=== PATIENT | female | born 1945 | race Caucasian/White ===

== ENCOUNTER → 2017-09-22 08:45 | Outpatient (CLI) | payer MEDICARE, OTHER, SELFPAY ==
[2017-09-22 09:24] LABS: Add Manual Diff / Slide Review NO; Basophils Percent Auto 0.7 % (0-2); Eosinophils Percent Auto 3.7 % (2-4); Hematocrit 41.7 % (36-46); Hemoglobin 14.2 g/dL (12.0-16.0); Lymphocytes Percent Auto 28.9 % (25-40); Mean Corpuscular HGB Conc 33.9 % (30-36); Mean Corpuscular Hemoglobin 33.1 PG (26-34); Mean Corpuscular Volume 97.6 fL (80-100); Monocytes Percent Auto 13.2 % (3-14); Neutrophils Absolute Auto 1600 /uL (3000-5900); Neutrophils Percent Auto 53.5 % (50-75); Platelet Count 175 X10^3/uL (150-400); Red Blood Cell Count 4.27 X10^6/uL (4.0-5.2)
[2017-09-22 09:47] LABS: Alanine Aminotransferase 44 IU/L (9-52); Albumin 4.1 g/dL (3.5-5.0); Albumin Globulin Ratio 1.5 (1.0-2.8); Alkaline Phosphatase 52 U/L (38-126); Aspartate Aminotransferase 42 IU/L (14-36); BUN Creatinine Ratio 17.1 (6-22); Bilirubin Total 0.7 mg/dL (0.2-1.3); Blood Urea Nitrogen 12 mg/dL (7-17); Calcium 9.5 mg/dL (8.4-10.2); Carbon Dioxide 26 mmol/L (22-32); Chloride 107 mmol/L (98-107); Cholesterol 145 mg/dL (140-199); Estimated Glomerular Filt Rate > 60.0 mL/min (>60); Globulin 2.8 g/dL (1.7-4.1); Glucose 116 mg/dL (80-110); HDL Cholesterol 45 mg/dL (40-60); HEMOLYSIS 19 (0-50); LDL Cholesterol Calculated 82 mg/dL (<100); Sodium 144 mmol/L (137-145); Total Protein 6.9 g/dL (6.3-8.2); Triglycerides 88 mg/dL (35-150)
== END ==
PROVIDERS: Family Provider Family Medicine; PCP Family Medicine; Visit Provider Internal Medicine Cardiovascular Disease
DX: I48.92 Unspecified atrial flutter (principal); I47.1 Supraventricular tachycardia; I47.2 Ventricular tachycardia; Z79.01 Long term (current) use of anticoagulants; E78.5 Hyperlipidemia, unspecified; D05.10 Intraductal carcinoma in situ of unspecified breast; E03.9 Hypothyroidism, unspecified
CPT/HCPCS: 36415; 80053; 80061; 84443; 85025

== ENCOUNTER → 2017-10-16 14:00 | Oncology outpatient (ONC) | payer MEDICARE, OTHER, SELFPAY ==
--- NOTE | 2017-10-16 08:16 | ONC.APRN.PN ---
Assessment and Plan (1) Breast cancer Current visit: Yes Status: Acute 10/16/17 15:37 The patient is a 72 year old Female who is being seen in the clinic 10/16/2017. She carries a diagnosis of bilateral stage I, ER-positive low-grade breast cancer in clinical remission since 2013 and respectively. The patient was taking AI anastrozole 05/2014-08/2016 however she elected to discontinue due to memory issues. She has since undergone bilateral mastectomy. On exam today no clinical signs or symptoms of disease recurrence. CBC, CMP unremarkable. Return to clinic in 1 year for provider visit. No labs indicated. Patient agrees with this plan of care. - Time Spent with Patient 25 mins PN -Subjective Interval history: The patient is a 72 year old Female who is being seen in the clinic 10/16/2017. She carries a diagnosis of bilateral stage I, ER-positive low-grade breast cancer in clinical remission since 2013 and respectively. The patient was taking AI anastrozole 05/2014-08/2016 however she elected to discontinue due to memory issues. She presents today with no new concerns on exam whatsoever. Overall feeling quite well, spending a lot of time working in her garden. She has not had any recent illnesses or infections. No headaches. No new pain, no new lumps or bumps. No nausea, abdominal pain. No change with bladder or bowel habits. Past Medical History The patient's past medical history is significant for: 1) Right-sided breast cancer: Stage I (pT1c, pN0). Diagnosis: 03/07/2014. Ultrasound-guided core needle biopsy. Pathology confirming invasive lobular carcinoma grade 1-2. ER and TX positive. HER-2 equivocal by IHC FISH negative. 04/16/2014. Right-sided mastectomy. Pathology confirming invasive lobular carcinoma. [place] grade 2. Single mass measuring 12 mm. ER/TX positive, Rosa Elena score equal to 8 of 8, and 8 of 8 respectively. HER-2 equivocal by IHC but negative by FISH. Ki-67 equal to 10%. 4 sentinel lymph nodes identified all negative for carcinoma. Posterior margin with no tumor on ink. The closest at 2 mm Prognosis: 05/14/2014. Oncotype DX. Recurrence score equal to 19. 10 year risk of distant recurrence at 12% after 5 years tamoxifen. Treatment: 06/06/2014-August 2016. Anastrozole. Discontinued secondary to increased memory loss. Cardiac monitorin10/28/2015.. Echocardiogram. EF 60-65%. 2) Left-sided breast cancer. Stage I (pT1c, PN 0) Diagnosis: 03/25/2014. Ultrasound-guided biopsy. Pathology confirming invasive ductal carcinoma [place] grade 1. ER and TX positive (95% and 60% respectively). HER-2 negative on IHC. Ki-67 less than 5%. 04/16/2014. Left-sided mastectomy. Pathology confirming an invasive ductal carcinoma with a solitary mass measuring 12 mm. [place] grade 2. ER/TX positive. HER-2 by IHC negative. Ki-67 5%. 3 sentinel lymph nodes identified all negative for disease. Prognosis: Oncotype DX as above. Treatment: 06/06/2014-August 2016. Anastrozole. Discontinued secondary to increased memory loss. Cardiac monitorin10/28/2015.. Echocardiogram. EF 60-65%. 3) Diffuse large B-cell lymphoma. Diagnosis: 2002. Treatment R CHOP, RICE, high-dose radiolabeled antibody followed by autologous transplant. Patient remains in clinical remission. Followed by Dr. Sal Pinedo at the [facility] last seen on 07/31/2013. 4) hypothyroidism. 5) depression. 6) intermittent GERD. 7) osteopenia. DEXA scans: 03/29/2016. T score of the AP spine, left and right neck of the femur: 1.0, -1.3, and -1.2, respectively. 09/18/2013. T score of the AP spine, left and right neck of the femur: 1.3, -1.6, and -1.3, respectively. Patient on calcium supplements. 8) Atrial Flutter. Presented in 2016. Status cardioversion. Senior Manager Mmcoe is Dr. Coy. Patient medically managed with eliquist and metoprolol. Breast Resection Staging BC Primary Tumor T1- Tumor <= 20mm BC Regional Nodes N0-no regional metastasis BC Metastasis M0-No evidence metastasis BC Resection Histology Grade II Results - Imaging Additional studies: Procedures Bunionectomy with soft tissue correction and osteotomy of the first metatarsal (05/16/11) Closed [endoscopic] biopsy of large intestine (08/05/11) Other bunionectomy (05/16/11) Other division of bone, tarsals and metatarsals (05/16/11) [Endoscopic] polypectomy of rectum (08/05/11) Home Medications and Allergies Home Medications Medication Instructions Recorded Confirmed Type CALCIUM CARBONATE/VITAMIN D3 1 tab PO #0 06/25/12 09/28/17 History (Super Calcium 600 + D3 Tablet) FOLIC ACID/VIT A/VIT B1/VIT 1 tab PO #0 06/25/12 09/28/17 History (#MULTIVITAMIN) [ALLER-LIBORIO] 10 mg PO QDAY #0 06/25/12 09/28/17 History apixaban [Eliquis] 5 mg BID #0 03/18/16 09/28/17 History cholecalciferol (vitamin D3) 1,000 1,000 unit PO DAILY 09/28/17 09/28/17 History unit capsule duloxetine 30 mg capsule,delayed 30 mg PO BID #180 cap 09/28/17 Rx release levothyroxine 75 mcg tablet 75 mcg PO QAM #90 tab 09/28/17 Rx metoprolol tartrate 25 mg tablet 25 mg PO BID #180 tab 09/28/17 Rx trazodone 50 mg tablet 75 mg PO HS #135 tab 09/28/17 Rx rosuvastatin 5 mg PO HS 10/16/17 History Allergies Allergy/AdvReac Type Severity Reaction Status Date / Time amoxicillin [From AUGMENTIN] Allergy Mild diarrhea Unverified 09/28/17 08:56 clavulanic acid Allergy Mild diarrhea Unverified 09/28/17 08:56 [From AUGMENTIN] codeine [CODEINE] Allergy Mild weakness Unverified 09/28/17 08:56 Sgzzdrb-Ufd-Dqc Reductase Allergy Mild Unverified 09/28/17 08:56 Inhibitor [IDORBGR-GKO-WHM REDUCTASE INHIBITOR] Sulfa (Sulfonamide Allergy Mild rash Unverified 09/28/17 08:56 Antibiotics) [SULFA (SULFONAMIDE ANTIBIOTICS)] IV CONTRAST Allergy Unknown Uncoded 09/28/17 08:56 Exam - Constitutional positive no acute distress, positive average body habitus - Routine HEENT Exam Eye: Present: conjunctivae pink. Absent: conjunctival icterus, scleral injection ENT: Present: mucous membranes moist, oropharynx clear - Routine Neck Exam Present: supple. Absent: lymphadenopathy - Routine Chest/Breast/Axilla Exam Chest wall exam standard: Absent: tenderness, mass Axillae: Absent: lymphadenopathy, mass, tenderness - Routine Respiratory Exam Present: Clear to auscultation bilaterally - Routine Cardiovascular Exam Present: RRR, S1, S2. Absent: JVD - Routine Abdominal Exam Present: soft, normoactive bowel sounds. Absent: tenderness, distended, organomegaly, mass - Routine Extremities Exam Absent: edema, calf tenderness - Routine Skin Exam Present: intact, normal turgor. Absent: petechiae - Routine Neurological Exam Present: alert, oriented X3 - Routine Psychiatric Exam Present: normal affect
--- NOTE | 2017-10-16 08:20 | P.PNONC_ITS ---
Assessment and Plan (1) Breast cancer Current visit: Yes Status: Acute 10/16/17 15:37 The patient is a 72 year old Female who is being seen in the clinic 10/16/2017. She carries a diagnosis of bilateral stage I, ER-positive low-grade breast cancer in clinical remission since 2013 and respectively. The patient was taking AI anastrozole 05/2014-08/2016 however she elected to discontinue due to memory issues. She has since undergone bilateral mastectomy. On exam today no clinical signs or symptoms of disease recurrence. CBC, CMP unremarkable. Return to clinic in 1 year for provider visit. No labs indicated. Patient agrees with this plan of care. - Time Spent with Patient 25 mins PN -Subjective Interval history: The patient is a 72 year old Female who is being seen in the clinic 10/16/2017. She carries a diagnosis of bilateral stage I, ER-positive low-grade breast cancer in clinical remission since 2013 and respectively. The patient was taking AI anastrozole 05/2014-08/2016 however she elected to discontinue due to memory issues. She presents today with no new concerns on exam whatsoever. Overall feeling quite well, spending a lot of time working in her garden. She has not had any recent illnesses or infections. No headaches. No new pain, no new lumps or bumps. No nausea, abdominal pain. No change with bladder or bowel habits. Past Medical History The patient's past medical history is significant for: 1) Right-sided breast cancer: Stage I (pT1c, pN0). Diagnosis: 03/07/2014. Ultrasound-guided core needle biopsy. Pathology confirming invasive lobular carcinoma grade 1-2. ER and NM positive. HER-2 equivocal by IHC FISH negative. 04/16/2014. Right-sided mastectomy. Pathology confirming invasive lobular carcinoma. [place] grade 2. Single mass measuring 12 mm. ER/NM positive, Rosa Elena score equal to 8 of 8, and 8 of 8 respectively. HER-2 equivocal by IHC but negative by FISH. Ki-67 equal to 10%. 4 sentinel lymph nodes identified all negative for carcinoma. Posterior margin with no tumor on ink. The closest at 2 mm Prognosis: 05/14/2014. Oncotype DX. Recurrence score equal to 19. 10 year risk of distant recurrence at 12% after 5 years tamoxifen. Treatment: 06/06/2014-August 2016. Anastrozole. Discontinued secondary to increased memory loss. Cardiac monitorin10/28/2015.. Echocardiogram. EF 60-65%. 2) Left-sided breast cancer. Stage I (pT1c, PN 0) Diagnosis: 03/25/2014. Ultrasound-guided biopsy. Pathology confirming invasive ductal carcinoma [place] grade 1. ER and NM positive (95% and 60% respectively). HER-2 negative on IHC. Ki-67 less than 5%. 04/16/2014. Left-sided mastectomy. Pathology confirming an invasive ductal carcinoma with a solitary mass measuring 12 mm. [place] grade 2. ER/NM positive. HER-2 by IHC negative. Ki-67 5%. 3 sentinel lymph nodes identified all negative for disease. Prognosis: Oncotype DX as above. Treatment: 06/06/2014-August 2016. Anastrozole. Discontinued secondary to increased memory loss. Cardiac monitorin10/28/2015.. Echocardiogram. EF 60-65%. 3) Diffuse large B-cell lymphoma. Diagnosis: 2002. Treatment R CHOP, RICE, high-dose radiolabeled antibody followed by autologous transplant. Patient remains in clinical remission. Followed by Dr. Sal Pinedo at the [facility] last seen on 07/31/2013. 4) hypothyroidism. 5) depression. 6) intermittent GERD. 7) osteopenia. DEXA scans: 03/29/2016. T score of the AP spine, left and right neck of the femur: 1.0, - 1.3, and -1.2, respectively. 09/18/2013. T score of the AP spine, left and right neck of the femur: 1.3, - 1.6, and -1.3, respectively. Patient on calcium supplements. 8) Atrial Flutter. Presented in 2016. Status cardioversion. Sports Journalist is Dr. Coy. Patient medically managed with eliquist and metoprolol. Breast Resection Staging BC Primary Tumor T1- Tumor <= 20mm BC Regional Nodes N0-no regional metastasis BC Metastasis M0-No evidence metastasis BC Resection Histology Grade II Results - Imaging Additional studies: Procedures Bunionectomy with soft tissue correction and osteotomy of the first metatarsal ( 05/16/11) Closed [endoscopic] biopsy of large intestine (08/05/11) Other bunionectomy (05/16/11) Other division of bone, tarsals and metatarsals (05/16/11) [Endoscopic] polypectomy of rectum (08/05/11) Home Medications and Allergies Home Medications Medication Instructions Recorded Confirmed Type CALCIUM CARBONATE/VITAMIN D3 1 tab PO #0 06/25/12 09/28/17 History (Super Calcium 600 + D3 Tablet) FOLIC ACID/VIT A/VIT B1/VIT 1 tab PO #0 06/25/12 09/28/17 History (#MULTIVITAMIN) [ALLER-LIBORIO] 10 mg PO QDAY #0 06/25/12 09/28/17 History apixaban [Eliquis] 5 mg BID #0 03/18/16 09/28/17 History cholecalciferol (vitamin D3) 1,000 1,000 unit PO DAILY 09/28/17 09/28/17 History unit capsule duloxetine 30 mg capsule,delayed 30 mg PO BID #180 cap 09/28/17 Rx release levothyroxine 75 mcg tablet 75 mcg PO QAM #90 tab 09/28/17 Rx metoprolol tartrate 25 mg tablet 25 mg PO BID #180 tab 09/28/17 Rx trazodone 50 mg tablet 75 mg PO HS #135 tab 09/28/17 Rx rosuvastatin 5 mg PO HS 10/16/17 History Allergies Allergy/AdvReac Type Severity Reaction Status Date / Time amoxicillin [From AUGMENTIN] Allergy Mild diarrhea Unverified 09/28/17 08:56 clavulanic acid Allergy Mild diarrhea Unverified 09/28/17 08:56 [From AUGMENTIN] codeine [CODEINE] Allergy Mild weakness Unverified 09/28/17 08:56 Tnmoygx-Fni-Awt Reductase Allergy Mild Unverified 09/28/17 08:56 Inhibitor [MKALPKN-OTH-LRU REDUCTASE INHIBITOR] Sulfa (Sulfonamide Allergy Mild rash Unverified 09/28/17 08:56 Antibiotics) [SULFA (SULFONAMIDE ANTIBIOTICS)] IV CONTRAST Allergy Unknown Uncoded 09/28/17 08:56 Exam - Constitutional positive no acute distress, positive average body habitus - Routine HEENT Exam Eye: Present: conjunctivae pink. Absent: conjunctival icterus, scleral injection ENT: Present: mucous membranes moist, oropharynx clear - Routine Neck Exam Present: supple. Absent: lymphadenopathy - Routine Chest/Breast/Axilla Exam Chest wall exam standard: Absent: tenderness, mass Axillae: Absent: lymphadenopathy, mass, tenderness - Routine Respiratory Exam Present: Clear to auscultation bilaterally - Routine Cardiovascular Exam Present: RRR, S1, S2. Absent: JVD - Routine Abdominal Exam Present: soft, normoactive bowel sounds. Absent: tenderness, distended, organomegaly, mass - Routine Extremities Exam Absent: edema, calf tenderness - Routine Skin Exam Present: intact, normal turgor. Absent: petechiae - Routine Neurological Exam Present: alert, oriented X3 - Routine Psychiatric Exam Present: normal affect
[2017-10-16 14:24] VITALS: BP 130/73; PULSE 78; RESP 18; TEMP 36.4; O2SAT 97
--- NOTE | 2019-01-17 14:37 | ONC.MSW ---
Description: Mastectomy wear/prescriptions Activity: Faxed in prescriptions for mastectomy bras and stephanie's, per pt's request.
== END ==
PROVIDERS: Family Provider Family Medicine; PCP Family Medicine; Visit Provider Nurse Practitioner Gerontology
DX: Z08 Encounter for follow-up examination after completed treatment for malignant neoplasm (principal); Z85.3 Personal history of malignant neoplasm of breast; Z85.72 Personal history of non-Hodgkin lymphomas
CPT/HCPCS: 99214

== ENCOUNTER → 2017-10-30 10:39 | Outpatient (CLI) | payer MEDICARE, OTHER, SELFPAY ==
[2017-10-30 12:44] LABS: Hemoglobin A1C% w Est Avg Glu 5.8 % (4.0-6.0)
== END ==
PROVIDERS: Family Provider Family Medicine; PCP Family Medicine; Visit Provider Family Medicine
DX: R73.01 Impaired fasting glucose (principal)
CPT/HCPCS: 36415; 83036

== ENCOUNTER → 2018-09-11 18:39 | Outpatient (CLI) | payer MEDICARE, OTHER, SELFPAY | PROVIDERS: Visit Provider Physician Assistant | DX: N39.0 Urinary tract infection, site not specified (principal); R31.9 Hematuria, unspecified | CPT/HCPCS: 87077; 87086; 87186 ==

== ENCOUNTER → 2018-10-05 13:25 | Outpatient (CLI) | payer MEDICARE, OTHER, SELFPAY | PROVIDERS: PCP Student in an Organized Health Care Education/Training Program; Visit Provider Student in an Organized Health Care Education/Training Program | DX: M85.852 Other specified disorders of bone density and structure, left thigh (principal); Z78.0 Asymptomatic menopausal state | CPT/HCPCS: 77080 ==

== ENCOUNTER → 2018-10-24 08:31 | Outpatient (CLI) | payer MEDICARE, OTHER, SELFPAY ==
[2018-10-24 08:59] LABS: Add Manual Diff / Slide Review NO; Basophils Absolute Auto 0 /uL (0-100); Eosinophils Absolute Auto 100 /uL (0-450); Eosinophils Percent Auto 2.8 % (2-4); Hematocrit 42.2 % (36-46); Hemoglobin 14.3 g/dL (12.0-16.0); Lymphocytes Absolute Auto 700 /uL (1100-4500); Lymphocytes Percent Auto 19.2 % (25-40); Mean Corpuscular HGB Conc 33.8 % (30-36); Mean Corpuscular Hemoglobin 32.7 PG (26-34); Mean Corpuscular Volume 96.8 fL (80-100); Monocytes Absolute Auto 400 /uL (0-900); Monocytes Percent Auto 11.5 % (3-14); Neutrophils Absolute Auto 2200 /uL (1500-7000); Neutrophils Percent Auto 65.5 % (50-75); Platelet Count 177 X10^3/uL (150-400); Red Blood Cell Count 4.36 X10^6/uL (4.0-5.2); Red Cell Distribution Width 13.2 % (11.6-14.8); White Blood Cell Count 3.4 X10^3/uL (4.5-11.0)
[2018-10-24 09:50] LABS: Cholesterol 188 mg/dL (140-199); HDL Cholesterol 52 mg/dL (40-60); LDL Cholesterol Calculated 113 mg/dL (<100); Triglycerides 117 mg/dL (35-150)
[2018-10-24 09:52] LABS: BUN Creatinine Ratio 24.3 (6-22); Blood Urea Nitrogen 17 mg/dL (7-17); Calcium 9.8 mg/dL (8.4-10.2); Carbon Dioxide 27 mmol/L (22-32); Chloride 106 mmol/L (98-107); Estimated Glomerular Filt Rate > 60.0 mL/min (>60); Glucose 105 mg/dL (80-110); HEMOLYSIS 28 (0-50); Potassium 4.4 mmol/L (3.4-5.1); Sodium 142 mmol/L (137-145)
== END ==
PROVIDERS: Family Provider Student in an Organized Health Care Education/Training Program; PCP Student in an Organized Health Care Education/Training Program; Visit Provider Internal Medicine Cardiovascular Disease
DX: E78.5 Hyperlipidemia, unspecified (principal); I48.92 Unspecified atrial flutter; I10 Essential (primary) hypertension; Z79.01 Long term (current) use of anticoagulants
CPT/HCPCS: 36415; 80048; 80061; 85025

== ENCOUNTER → 2019-10-28 07:29 | Outpatient (CLI) | payer MEDICARE, OTHER, SELFPAY ==
[2019-10-28 08:19] LABS: Add Manual Diff / Slide Review NO; Basophils Absolute Auto 0 /uL (0-100); Basophils Percent Auto 1.2 % (0-2); Eosinophils Absolute Auto 100 /uL (0-450); Eosinophils Percent Auto 3.3 % (2-4); Hematocrit 42.8 % (36-46); Hemoglobin 14.5 g/dL (12.0-16.0); Lymphocytes Absolute Auto 900 /uL (1100-4500); Lymphocytes Percent Auto 23.6 % (25-40); Mean Corpuscular HGB Conc 33.8 % (30-36); Mean Corpuscular Hemoglobin 33.5 PG (26-34); Mean Corpuscular Volume 99.2 fL (80-100); Monocytes Absolute Auto 400 /uL (0-900); Monocytes Percent Auto 11.1 % (3-14); Neutrophils Absolute Auto 2300 /uL (1500-7000); Neutrophils Percent Auto 60.8 % (50-75); Platelet Count 174 X10^3/uL (150-400); Red Blood Cell Count 4.32 X10^6/uL (4.0-5.2); Red Cell Distribution Width 13.4 % (11.6-14.8); White Blood Cell Count 3.8 X10^3/uL (4.5-11.0)
[2019-10-28 08:35] LABS: BUN Creatinine Ratio 17.6 (6-22); Blood Urea Nitrogen 13 mg/dL (7-17); Calcium 9.9 mg/dL (8.4-10.2); Carbon Dioxide 27 mmol/L (22-32); Chloride 105 mmol/L (98-107); Cholesterol 178 mg/dL (140-199); Estimated Glomerular Filt Rate > 60.0 mL/min (>60); Glucose 112 mg/dL (80-110); HDL Cholesterol 57 mg/dL (40-60); HEMOLYSIS < 15 (0-50); LDL Cholesterol Calculated 95 mg/dL (<100); Potassium 4.2 mmol/L (3.4-5.1); Sodium 139 mmol/L (137-145); Triglycerides 132 mg/dL (35-150)
== END ==
PROVIDERS: Family Provider Student in an Organized Health Care Education/Training Program; PCP Student in an Organized Health Care Education/Training Program; Referring Provider Internal Medicine Cardiovascular Disease; Visit Provider Internal Medicine Cardiovascular Disease
DX: E78.5 Hyperlipidemia, unspecified (principal); Z79.01 Long term (current) use of anticoagulants; I47.1 Supraventricular tachycardia
CPT/HCPCS: 36415; 80048; 80061; 85025

== ENCOUNTER → 2020-10-29 07:37 | Outpatient (CLI) | payer MEDICARE, OTHER, SELFPAY ==
[2020-10-29 08:40] LABS: Add Manual Diff / Slide Review NO; Basophils Absolute Auto 0 /uL (0-100); Basophils Percent Auto 0.8 % (0-2); Eosinophils Absolute Auto 100 /uL (0-450); Eosinophils Percent Auto 4.2 % (2-4); Hematocrit 41.3 % (36-46); Lymphocytes Absolute Auto 1000 /uL (1100-4500); Lymphocytes Percent Auto 28.2 % (25-40); Mean Corpuscular HGB Conc 33.8 % (30-36); Mean Corpuscular Volume 97.7 fL (80-100); Monocytes Absolute Auto 400 /uL (0-900); Monocytes Percent Auto 13.2 % (3-14); Neutrophils Absolute Auto 1800 /uL (1500-7000); Neutrophils Percent Auto 53.6 % (50-75); Platelet Count 167 X10^3/uL (150-400); Red Blood Cell Count 4.23 X10^6/uL (4.0-5.2); Red Cell Distribution Width 12.7 % (11.6-14.8); White Blood Cell Count 3.4 X10^3/uL (4.5-11.0)
[2020-10-29 09:15] LABS: BUN Creatinine Ratio 19.5 (6-22); Blood Urea Nitrogen 17 mg/dL (7-17); Calcium 9.8 mg/dL (8.4-10.2); Carbon Dioxide 25 mmol/L (22-32); Chloride 108 mmol/L (98-107); Cholesterol 178 mg/dL (140-199); Estimated Glomerular Filt Rate > 60.0 mL/min (>60); Glucose 106 mg/dL (80-110); HDL Cholesterol 43 mg/dL (40-60); HEMOLYSIS < 15 (0-50); LDL Cholesterol Calculated 114 mg/dL (<100); Sodium 139 mmol/L (137-145); Triglycerides 106 mg/dL (35-150)
== END ==
PROVIDERS: Family Provider Student in an Organized Health Care Education/Training Program; PCP Student in an Organized Health Care Education/Training Program; Referring Provider Internal Medicine Cardiovascular Disease; Visit Provider Internal Medicine Cardiovascular Disease
DX: I47.2 Ventricular tachycardia (principal); E78.5 Hyperlipidemia, unspecified; Z79.01 Long term (current) use of anticoagulants
CPT/HCPCS: 36415; 80048; 80061; 85025

== ENCOUNTER → 2020-12-03 11:03 | Outpatient (CLI) | payer MEDICARE, OTHER, SELFPAY | PROVIDERS: Family Provider Student in an Organized Health Care Education/Training Program; PCP Student in an Organized Health Care Education/Training Program; Referring Provider Student in an Organized Health Care Education/Training Program; Visit Provider Student in an Organized Health Care Education/Training Program | DX: Z78.0 Asymptomatic menopausal state (principal); M85.852 Other specified disorders of bone density and structure, left thigh; M85.851 Other specified disorders of bone density and structure, right thigh | CPT/HCPCS: 77080 ==

== ENCOUNTER → 2021-11-18 08:25 | Outpatient (CLI) | payer MEDICARE, OTHER, SELFPAY ==
[2021-11-18 10:45] LABS: Add Manual Diff / Slide Review NO; Basophils Absolute Auto 0 /uL (0-100); Eosinophils Absolute Auto 100 /uL (0-450); Eosinophils Percent Auto 2.2 % (2-4); Hematocrit 41.9 % (36-46); Hemoglobin 14.2 g/dL (12.0-16.0); Lymphocytes Absolute Auto 800 /uL (1100-4500); Lymphocytes Percent Auto 25.8 % (25-40); Mean Corpuscular Hemoglobin 33.4 PG (26-34); Mean Corpuscular Volume 98.2 fL (80-100); Monocytes Absolute Auto 400 /uL (0-900); Monocytes Percent Auto 14.1 % (3-14); Neutrophils Absolute Auto 1700 /uL (1500-7000); Neutrophils Percent Auto 56.9 % (50-75); Platelet Count 174 X10^3/uL (150-400); Red Blood Cell Count 4.27 X10^6/uL (4.0-5.2); Red Cell Distribution Width 13.1 % (11.6-14.8)
[2021-11-18 11:23] LABS: BUN Creatinine Ratio 18.2 (6-22); Blood Urea Nitrogen 16 mg/dL (7-17); Calcium 9.3 mg/dL (8.4-10.2); Carbon Dioxide 25 mmol/L (22-32); Chloride 106 mmol/L (98-107); Cholesterol 168 mg/dL (140-199); Estimated Glomerular Filt Rate > 60 mL/min (>60); Glucose 103 mg/dL (80-110); HDL Cholesterol 49 mg/dL (40-60); HEMOLYSIS < 15 (0-50); LDL Cholesterol Calculated 104 mg/dL (<100); Sodium 141 mmol/L (137-145); Triglycerides 75 mg/dL (35-150)
== END ==
PROVIDERS: Family Provider Student in an Organized Health Care Education/Training Program; PCP Student in an Organized Health Care Education/Training Program; Referring Provider Internal Medicine Cardiovascular Disease; Visit Provider Internal Medicine Cardiovascular Disease
DX: E78.5 Hyperlipidemia, unspecified (principal); I48.92 Unspecified atrial flutter; Z79.01 Long term (current) use of anticoagulants
CPT/HCPCS: 36415; 80048; 80061; 85025

== ENCOUNTER → 2022-01-17 09:16 | Outpatient (CLI) | payer MEDICARE, OTHER, SELFPAY ==
[2022-01-17 12:27] LABS: COVID19 -Nasal RAPID Negative (Negative)
== END ==
PROVIDERS: Family Provider Student in an Organized Health Care Education/Training Program; PCP Student in an Organized Health Care Education/Training Program; Visit Provider Surgery
DX: Z20.822 Contact with and (suspected) exposure to COVID-19 (principal); Z01.812 Encounter for preprocedural laboratory examination
CPT/HCPCS: 87635; C9803

== ENCOUNTER 2022-01-18 06:35 | Day surgery (SDC) | payer MEDICARE, OTHER, SELFPAY ==
[2022-01-18] VITALS (7 sets, daily range): BP systolic 90–148; BP diastolic 55–83; PULSE 68–85; RESP 7–16; TEMP 35.7–36.8; O2SAT 90–98; BMI 29.7
--- NOTE | 2022-01-18 | PATH_ITS ---
[facility] Accession Number: [id number] . 01 Material submitted: . colon - DESCENDING COLON POLYP . 01 Diagnosis: Descending Colon Polyp, Biopsy: Hyperplastic polyp. MRV 01/24/2022 1542 Local . 01 Electronically signed: . Sophia Alves MD, Pathologist NPI- [id number] . 01 Gross description: . DESCENDING COLON POLYP: Received in formalin is 1 fragment(s) of hodges, soft tissue measuring 0.2 x 0.2 x 0.1 cm submitted entirely in 1 cassette(s) /CPE 01/20/2022 0716 Local . 01 Pathologist provided ICD-10: D12.4 . 01 CPT . 375035 Specimen Comment: A courtesy copy of this report has been sent to [facility] Pathology Performed at: 01 [facility] [address] [place] [id number] MD Moise Burns MD Phone: [phone]
[2022-01-18] MEDS: LACTATED RINGERS 1,000 ML 42 ML IV (07:26)
--- NOTE | 2022-01-18 08:01 | PM.HP.1 ---
History of Present Illness History of Present Illness Chief complaint: Colonoscopy Narrative: Doing well. No complaints. Feeling dehydrated, but otherwise fine. No blood or change in bowel movements. Father with history of colon cancer. History of polyps in the past. 5 year f/u recommended. No issues with c-scope in past. Sister with unspecified colitis and long history of colon problems. Eliquis held for last 2 days. 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 Urinary incontinence Surgical History Anesthesia complication History of spinal surgery (1981) History of stem cell transplant (2002) History of total mastectomy (04/16/14) Status post bunionectomy (2011) Status post tubal ligation (1977) Family & Social History Family History Father Cancer Osteoporosis Mother Generalized onset seizure disorder Hypertension Sister Age: 80 Hypertension High cholesterol Osteoporosis Grandfather Cancer Grandmother Pneumonia Grandfather Cancer Social History: household members none Tobacco & Substance use: Smoking Status Never smoker alcohol intake current alcohol intake frequency holiday/special occasion Substance Use Type does not use Meds Home Medications and Allergies Home Medications Medication Instructions Recorded Confirmed Type CALCIUM CARBONATE/VITAMIN D3 1 tab PO ##0 06/25/12 12/07/21 History (Super Calcium 600 + D3 Tablet) FOLIC ACID/VIT A/VIT B1/VIT 1 tab PO ##0 06/25/12 12/07/21 History (#MULTIVITAMIN) [ALLER-LIBORIO] 10 mg PO QDAY ##0 06/25/12 12/07/21 History apixaban 5 mg tablet (Eliquis) 5 mg BID ##0 03/18/16 01/18/22 History cholecalciferol (vitamin D3) 25 1,000 unit PO DAILY 09/28/17 12/07/21 History mcg (1,000 unit) capsule rosuvastatin 5 mg tablet 5 mg PO HS 10/16/17 01/18/22 History metoprolol tartrate 25 mg tablet 50 mg PO BID #180 tabs 11/19/20 01/18/22 Rx azelastine 137 mcg (0.1 %) nasal 1 spray intranasal BID #30 mL 12/24/20 12/07/21 Rx spray aerosol duloxetine 30 mg capsule,delayed 30 mg PO BID #180 caps 12/07/21 01/18/22 Rx release (Cymbalta) flecainide 100 mg tablet 100 mg PO Q12H PRN tachycardia 12/07/21 01/18/22 History ipratropium bromide 42 mcg (0.06 2 spray intranasal TID-QID PRN 12/07/21 01/18/22 Rx %) nasal spray allergy symptoms #15 mL levothyroxine 75 mcg tablet 75 mcg PO QAM #90 tabs 12/07/21 01/18/22 Rx (Synthroid) trazodone 50 mg tablet 75 mg PO HS #135 tabs 12/07/21 01/18/22 Rx Allergies Allergy/AdvReac Type Severity Reaction Status Date / Time amoxicillin [From AUGMENTIN] Allergy Mild diarrhea Verified 01/18/22 07:21 clavulanic acid Allergy Mild diarrhea Verified 01/18/22 07:21 [From AUGMENTIN] codeine [CODEINE] Allergy Mild weakness Verified 01/18/22 07:21 Pqqbsti-RUB-JfM Reductase Allergy Mild Verified 01/18/22 07:21 Inhibitor [KYMTTKY-ASW-AEN REDUCTASE INHIBITOR] Sulfa (Sulfonamide Allergy Mild rash Verified 01/18/22 07:21 Antibiotics) [SULFA (SULFONAMIDE ANTIBIOTICS)] IV CONTRAST Allergy Unknown Uncoded 01/18/22 07:21 Exam Vital Signs (past 8 hours): - 01/18/22 06:58 Temperature 97.2 F L Pulse Rate 85 Respiratory Rate 16 Blood Pressure 148/83 H Pulse Oximetry 95 Oxygen Delivery Method Room Air Oxygen Delivery Method Room Air Const General: cooperative, healthy appearing and comfortable [facility] Head: normal to inspection Eyes General: appearance normal, both eyes and all related structures Neck Neck: normal visual inspection Resp Effort & Inspection: normal respiratory effort and able to speak in complete sentences Cardio Pulses: radial pulses present GI Inspection: normal to inspection Palpation: No tender Assessment & Plan Assessment and plan (1) Screen for colon cancer: Status: Acute Plan I discussed risks, benefits, alternatives to screening colonosopy, including but not limited to perforation, bleeding, need to return to ER/hospital after procedure. Questions were answered. She understands and wishes to proceed. Time Spent With Patient Critical Care time: I spent a total of [] minutes of critical care time on this patient's care today; this time is exclusive of procedural time.
--- NOTE | 2022-01-18 09:38 | P.OP_ITS ---
Procedure & Clinicians Procedure: Screeing colonoscopy, polypectomy Same procedure as scheduled: Yes Indications: Screening. Father with colon cancer. history of polyps. Surgeon: Ingrid Lord Click Yes if Unassisted: Yes Operative Notes Specimen(s): other (descending colon polyps) Procedure in detail: Patient was taken to the operating room and placed in left lateral decubitus position. A time-out was performed. An anesthesiologist performed the sedation. A digital rectal was performed and the scope was introduced. There was some difficulty getting around the hepatic flexure and she required being placed in a supine position for this. However the cecum was intubated and a photograph was taken of the appendiceal orifice. Upon withdrawal of the scope there was a large polypoid like appearing piece of stool, which was stuck to the colon sidewall. However when the snare was placed around it became apparent that this was not indeed attached. Further withdrawal revealed 1 very small polyp in the descending colon which was snared and removed and sent as a specimen. Otherwise the colon mucosa was normal. The scope was retroflexed and removed. For abnormalities were appreciated. The prep was [place] Bowel Prep 2. No complications. Complications: none Post-operative Disposition: PACU
== END 2022-01-18 10:11 | disposition home or self-care (01) ==
PROVIDERS: Family Provider Student in an Organized Health Care Education/Training Program; PCP Student in an Organized Health Care Education/Training Program; Referring Provider Surgery; Visit Provider Surgery
PROC: 0DJD8ZZ Inspection of Lower Intestinal Tract, Via Natural or Artificial Opening Endoscopic (ICD-10-PCS; CPT 45378; principal; 2022-01-18 07:45)
DX: Z12.11 Encounter for screening for malignant neoplasm of colon (principal); Z86.010 Personal history of colon polyps; Z80.0 Family history of malignant neoplasm of digestive organs; I48.91 Unspecified atrial fibrillation; D12.4 Benign neoplasm of descending colon
CPT/HCPCS: 45385; J2704

== ENCOUNTER → 2022-06-01 11:50 | Outpatient (CLI) | payer MEDICARE, SELFPAY ==
--- NOTE | 2022-06-01 | DI.MRI.S_ITS ---
PROCEDURE: MR ANKLE RT WO CON INDICATIONS: Achilles tendinitis, RIGHT leg TECHNIQUE: Noncontrast sagittal T1 spin echo and T2 fast spin echo with fat saturation, axial proton density fast spin echo and T2 fast spin echo with fat saturation, coronal T1 spin echo and T2 fast spin echo with fat saturation through the ankle/hindfoot. COMPARISON: [facility], CR, XR ANKLE 3 VIEWS WEIGHT BEARING RIGHT, 04/06/2022, 13:18. FINDINGS: Image quality: Excellent. Bones and joints: Mild osseous edema is seen within the posterosuperior calcaneus. No hindfoot coalitions. Small chronic osteochondral lesion is seen at the medial talar dome measuring approximately 2 mm in maximum dimension with overlying cartilage loss. No disruption of the subchondral plate or loose osteochondral fragment is seen. Mild nonspecific subcutaneous soft tissue edema is seen over the medial and lateral malleoli and surrounding the Achilles tendon insertion. Medial structures: The deep and superficial layers of the deltoid ligament appear intact. The spring ligament components are intact. The posterior tibialis, flexor digitorum longus, and flexor hallucis longus endons are intact. The posterior tibial neurovascular bundle appears normal within the tarsal tunnel, without extrinsic mass effect. Lateral structures: There is thickening of the anterior talofibular ligament compatible with a remote prior moderate grade sprain. The calcaneofibular ligament and posterior talofibular ligament are grossly intact. Irregular appearance of the peroneus brevis tendon is consistent with a partial tearing at the level of the distal fibula with distal tendon reconstitution at the level of the calcaneocuboid joint. Mild peroneus longus tendinosis. The sinus tarsi demonstrates normal fatty signal, without edema, fibrosis, or cyst formation. Anterior structures: The tibialis anterior, extensor hallucis longus, and extensor digitorum longus tendons appear intact. The dorsal talonavicular ligament appears intact. Posterior and plantar structures: Mild Achilles tendinosis. Mild osseous edema is seen in the adjacent portion of the calcaneus that may be related to traction trabecular bone injury. Small amount of retro Achilles fluid and soft tissue edema are present. Medial and lateral bands of the plantar fascia are of normal thickness. No abductor digiti quinti muscle atrophy to suggest Mosley neuropathy. IMPRESSION: 1. Mild Achilles tendinosis. Small amount of retro Achilles bursal fluid and surrounding soft tissue edema are suspicious for retro Achilles bursitis. 2. Mild osseous edema in the posterior calcaneus may be reactive to the adjacent bursitis versus secondary to traction trabecular bone injury. No acute osseous fracture. 3. Partial intrasubstance tearing of the peroneus brevis tendon at the level of the distal fibula with distal tendon reconstitution at the level of the calcaneocuboid joint. 4. Remote prior moderate grade sprain of the anterior talofibular ligament. 5. Tiny chronic osteochondral lesion measuring 2 mm at the medial talar dome with overlying cartilage loss and subchondral cystic changes. No disruption of the subchondral plate or loose osteochondral fragment. Approved by: Suhail Strickland M.D. on 06/02/2022 at 13:06
== END ==
PROVIDERS: Family Provider Student in an Organized Health Care Education/Training Program; PCP Student in an Organized Health Care Education/Training Program; Referring Provider Orthopaedic Surgery Foot and Ankle Surgery; Visit Provider Orthopaedic Surgery Foot and Ankle Surgery
DX: M76.61 Achilles tendinitis, right leg (principal); S96.811A Strain of other specified muscles and tendons at ankle and foot level, right foot, initial encounter
CPT/HCPCS: 73721

== ENCOUNTER → 2022-12-08 10:18 | Outpatient (CLI) | payer MEDICARE, SELFPAY ==
[2022-12-08 11:08] LABS: Appearance Urine UA CLEAR; Bilirubin Urine UA NEGATIVE (NEGATIVE); Color Urine UA YELLOW; Glucose Urine UA NEGATIVE (Negative); Ketones Urine UA NEGATIVE (NEGATIVE); Leukocyte Esterase Urine UA NEGATIVE (NEGATIVE); Nitrite Urine UA NEGATIVE (Negative); Occult Blood Urine UA TRACE-INTACT (Negative); Protein Urine UA NEGATIVE (Negative); Specific Gravity Urine UA 1.015 (1.000-1.035); Urobilinogen Urine UA 0.2 E.U./dL (0.2)
[2022-12-08 11:12] LABS: Add Manual Diff / Slide Review NO; Basophils Absolute Auto 0 /uL (0-100); Basophils Percent Auto 0.7 % (0-2); Eosinophils Absolute Auto 100 /uL (0-450); Eosinophils Percent Auto 2.2 % (2-4); Hematocrit 41.8 % (36-46); Hemoglobin 14.2 g/dL (12.0-16.0); Lymphocytes Absolute Auto 900 /uL (1100-4500); Lymphocytes Percent Auto 18.7 % (25-40); Mean Corpuscular HGB Conc 33.9 % (30-36); Mean Corpuscular Hemoglobin 33.8 PG (26-34); Mean Corpuscular Volume 99.8 fL (80-100); Monocytes Absolute Auto 500 /uL (0-900); Neutrophils Absolute Auto 3400 /uL (1500-7000); Neutrophils Percent Auto 68.4 % (50-75); Platelet Count 171 X10^3/uL (150-400); Red Blood Cell Count 4.19 X10^6/uL (4.0-5.2); Red Cell Distribution Width 12.8 % (11.6-14.8); White Blood Cell Count 4.9 X10^3/uL (4.5-11.0)
[2022-12-08 11:29] LABS: RBC Urine 0-1/HPF (0-5/HPF); pH Urine UA 7.5 (4.5-8.0)
[2022-12-08 11:30] LABS: Bacteria Urine None Seen; Culture Indicated Urine Cult Not Indicated; Squamous Epithelial Cell Urine None Seen (0-5/HPF); WBC Urine None Seen (0-5/HPF)
[2022-12-08 11:45] LABS: Alanine Aminotransferase 57 IU/L (<35); Albumin 4.5 g/dL (3.5-5.0); Albumin Globulin Ratio 1.4 (1.0-2.8); Alkaline Phosphatase 51 U/L (38-126); Aspartate Aminotransferase 48 IU/L (14-36); BUN Creatinine Ratio 11.6 (6-22); Bilirubin Total 0.5 mg/dL (0.2-1.3); Blood Urea Nitrogen 10 mg/dL (7-17); Calcium 10.3 mg/dL (8.4-10.2); Carbon Dioxide 29 mmol/L (22-32); Chloride 102 mmol/L (98-107); Cholesterol 192 mg/dL (140-199); Estimated Glomerular Filt Rate > 60 mL/min (>60); Globulin 3.2 g/dL (1.7-4.1); Glucose 111 mg/dL (80-110); HDL Cholesterol 46 mg/dL (40-60); HEMOLYSIS < 15 (0-50); LDL Cholesterol Calculated 105 mg/dL (<100); Potassium 4.4 mmol/L (3.4-5.1); Sodium 139 mmol/L (137-145); Total Protein 7.7 g/dL (6.3-8.2); Triglycerides 206 mg/dL (35-150)
[2022-12-08 12:06] LABS: Vitamin D 25 Hydroxy (D3) 44.6 ng/mL (30.0-100.0)
[2022-12-08 12:15] LABS: TSH w/ Reflex to FT4 4.57 uIU/mL (0.47-4.68)
== END ==
PROVIDERS: Family Provider Student in an Organized Health Care Education/Training Program; PCP Pediatrics; Referring Provider Internal Medicine Cardiovascular Disease; Visit Provider Internal Medicine Cardiovascular Disease
DX: E03.9 Hypothyroidism, unspecified (principal); I48.92 Unspecified atrial flutter; E78.5 Hyperlipidemia, unspecified; Z79.01 Long term (current) use of anticoagulants; Z00.00 Encounter for general adult medical examination without abnormal findings; E78.2 Mixed hyperlipidemia; I47.1 Supraventricular tachycardia
CPT/HCPCS: 80053; 80061; 81001; 82306; 84443; 85025

== ENCOUNTER → 2022-12-13 08:23 | Outpatient (CLI) | payer MEDICARE, SELFPAY ==
[2022-12-13 09:57] LABS: Alanine Aminotransferase 51 IU/L (<35); Albumin 4.3 g/dL (3.5-5.0); Albumin Globulin Ratio 1.5 (1.0-2.8); Alkaline Phosphatase 54 U/L (38-126); Aspartate Aminotransferase 42 IU/L (14-36); BUN Creatinine Ratio 18.4 (6-22); Bilirubin Total 0.6 mg/dL (0.2-1.3); Blood Urea Nitrogen 14 mg/dL (7-17); Calcium 9.3 mg/dL (8.4-10.2); Carbon Dioxide 24 mmol/L (22-32); Chloride 106 mmol/L (98-107); Estimated Glomerular Filt Rate > 60 mL/min (>60); Globulin 2.8 g/dL (1.7-4.1); Glucose 125 mg/dL (80-110); HEMOLYSIS < 15 (0-50); Potassium 4.3 mmol/L (3.4-5.1); Sodium 139 mmol/L (137-145); Total Protein 7.1 g/dL (6.3-8.2)
== END ==
PROVIDERS: Family Provider Student in an Organized Health Care Education/Training Program; PCP Pediatrics; Referring Provider Pediatrics; Visit Provider Pediatrics
DX: E78.2 Mixed hyperlipidemia (principal)
CPT/HCPCS: 36415; 80053

== ENCOUNTER → 2022-12-27 10:43 | Outpatient (CLI) | payer MEDICARE, SELFPAY ==
--- NOTE | 2022-12-27 10:44 | DI.RAD.S_ITS ---
Bone Density Report Name: JACKIE FREEDMAN Age: 77 Sex: Female Ethnicity: White Date of : 1945 Indication: postmenopausal; screening for osteoporosis; Referring Provider: JOYCE LUNSFORD Study: Bone densitometry was performed. Exam Date: December 27, 2022 Accession number: [id number] Bone Density: Region BMD T-score Z-score Classification AP Spine(L1-L4) 1.197 1.4 4.0 Normal Femoral Neck (Left) 0.745 -0.9 1.3 Normal Total Hip (Left) 0.909 -0.3 1.8 Normal Femoral Neck (Right) 0.777 -0.7 1.6 Normal Total Hip (Right) 1.006 0.5 2.6 Normal Total Hip Mean 0.958 0.1 2.2 Normal World Health Organization criteria for BMD impression classify patients as: Normal (T-score at or above -1.0), Osteopenia (T-score between -1.0 and -2.5), or Osteoporosis (T-score at or below -2.5). 10-year Fracture Risk: FRAX not reported because: All T-scores for Spine Total, Hip Total, Femoral Neck at or above -1.0 Previous Exams: -- Region Exam Age BMD T-score BMD Change BMD Change Date g/cm2 vs Baseline vs Previous -- AP Spine (L1-L4) 12/27/2022 77 1.197 1.4 0.035 (3.0%)# -0.089 (-6.9%)# 12/03/2020 75 1.286 2.2 0.124 (10.7%)* 0.062 (5.1%)* 10/05/2018 73 1.224 1.6 0.062 (5.3%)* 0.047 (4.0%)* 03/29/2016 70 1.177 1.2 0.014 (1.2%) -0.028 (-2.3%)* 09/18/2013 68 1.204 1.4 0.042 (3.6%)* -0.006 (-0.5%) 04/30/2010 64 1.211 1.5 0.049 (4.2%)* 0.049 (4.2%)* 04/29/2004 58 1.162 1.0 Total Hip(Left) 12/27/2022 77 0.909 -0.3 -0.009 (-1.0%)# -0.012 (-1.3%)# 12/03/2020 75 0.921 -0.2 0.003 (0.3%) -0.014 (-1.5%) 10/05/2018 73 0.935 -0.1 0.016 (1.8%) 0.030 (3.4%)* 03/29/2016 70 0.905 -0.3 -0.014 (-1.5%) 0.006 (0.6%) 09/18/2013 68 0.899 -0.4 -0.020 (-2.1%) -0.038 (-4.1%)* 04/30/2010 64 0.937 0.0 0.019 (2.0%) 0.019 (2.0%) 04/29/2004 58 0.918 -0.2 Total Hip(Right) 12/27/2022 77 1.006 0.5 0.065 (6.9%)# 0.011 (1.1%)# 12/03/2020 75 0.995 0.4 0.054 (5.7%)* 0.037 (3.8%)* 10/05/2018 73 0.959 0.1 0.017 (1.8%) 0.018 (2.0%) 03/29/2016 70 0.940 0.0 -0.001 (-0.2%) 0.003 (0.3%) 09/18/2013 68 0.937 0.0 -0.005 (-0.5%) -0.016 (-1.7%) 04/30/2010 64 0.953 0.1 0.011 (1.2%) 0.011 (1.2%) 04/29/2004 58 0.942 0.0 -- *Denotes significance at 95% confidence level, LSC for AP Spine = 0.022 g/cm2, LSC for Total Hip = 0.027 g/cm2 # Denotes dissimilar scan types or analysis methods Impression: The patient has normal bone mass. No significant bone loss was observed. Discussion: BONE DENSITY IS ABOVE THE MINIMUM DESIRABLE LEVEL AT ALL SKELETAL SITES TESTED. This patient's bone mineral density is above the minimum desirable level (T-score -1.0 or better) at all sites measured. The patient should follow a healthful lifestyle (good nutrition with adequate calcium and vitamin D, and appropriate weight-bearing exercise). Follow-Up: Consider repeating this study in 5 years or sooner if there is some new clinical indication. Reported by: LYRIC PICKENS MD on 12/27/2022 11:12:00 AM.
== END ==
PROVIDERS: Family Provider Student in an Organized Health Care Education/Training Program; PCP Internal Medicine; Referring Provider Pediatrics; Visit Provider Pediatrics
DX: Z78.0 Asymptomatic menopausal state (principal)
CPT/HCPCS: 77080

== ENCOUNTER → 2023-05-30 09:44 | Outpatient (CLI) | payer MEDICARE, SELFPAY ==
[2023-05-30 10:55] LABS: Alanine Aminotransferase 116 IU/L (<35); Albumin 4.4 g/dL (3.5-5.0); Albumin Globulin Ratio 1.5 (1.0-2.8); Alkaline Phosphatase 58 U/L (38-126); Aspartate Aminotransferase 87 IU/L (14-36); Bilirubin Total 0.6 mg/dL (0.2-1.3); Blood Urea Nitrogen 13 mg/dL (7-17); Calcium 10.1 mg/dL (8.4-10.2); Carbon Dioxide 27 mmol/L (22-32); Chloride 107 mmol/L (98-107); Estimated Glomerular Filt Rate > 60 mL/min (>60); Globulin 2.9 g/dL (1.7-4.1); Glucose 117 mg/dL (80-110); HEMOLYSIS < 15 (0-50); Potassium 4.3 mmol/L (3.4-5.1); Sodium 140 mmol/L (137-145); Total Protein 7.3 g/dL (6.3-8.2)
[2023-05-30 11:22] LABS: TSH w/ Reflex to FT4 8.05 uIU/mL (0.47-4.68)
[2023-05-30 11:50] LABS: Free T4, Direct Thyroxine 1.12 ng/dL (0.78-2.19)
[2023-06-01 02:40] LABS: HBsAg Screen Negative (Negative); Hepatitis A Antibody IgM Negative (Negative); Hepatitis B Core Antibody IgM Negative (Negative); Hepatitis C Antibody Non Reactive (Non Reactive)
== END ==
PROVIDERS: Family Provider Student in an Organized Health Care Education/Training Program; PCP Internal Medicine; Referring Provider Internal Medicine; Visit Provider Internal Medicine
DX: E03.9 Hypothyroidism, unspecified (principal); R79.89 Other specified abnormal findings of blood chemistry; Z20.9 Contact with and (suspected) exposure to unspecified communicable disease
CPT/HCPCS: 36415; 80053; 80074; 84439; 84443

== ENCOUNTER → 2023-07-20 08:09 | Outpatient (CLI) | payer MEDICARE, SELFPAY ==
[2023-07-20 08:50] LABS: Hemoglobin A1C% w Est Avg Glu 6.4 % (4.0-6.0)
[2023-07-20 09:26] LABS: Alanine Aminotransferase 89 IU/L (<35); Albumin 4.5 g/dL (3.5-5.0); Albumin Globulin Ratio 1.6 (1.0-2.8); Alkaline Phosphatase 50 U/L (38-126); Aspartate Aminotransferase 76 IU/L (14-36); Bilirubin Total 0.7 mg/dL (0.2-1.3); Bilirubin Unconjugated 0.5 mg/dL (0.0-1.1); Globulin 2.9 g/dL (1.7-4.1); HEMOLYSIS < 15 (0-50); Total Protein 7.4 g/dL (6.3-8.2)
[2023-07-20 09:51] LABS: TSH w/ Reflex to FT4 7.14 uIU/mL (0.47-4.68)
[2023-07-20 20:36] LABS: Free T4, Direct Thyroxine 0.94 ng/dL (0.78-2.19)
== END ==
PROVIDERS: Family Provider Student in an Organized Health Care Education/Training Program; PCP Internal Medicine; Referring Provider Internal Medicine; Visit Provider Internal Medicine
DX: R79.89 Other specified abnormal findings of blood chemistry (principal); E03.9 Hypothyroidism, unspecified; R73.01 Impaired fasting glucose
CPT/HCPCS: 36415; 80076; 83036; 84439; 84443

== ENCOUNTER → 2023-09-19 10:43 | Outpatient (CLI) | payer MEDICARE, SELFPAY ==
[2023-09-19 12:10] LABS: TSH w/ Reflex to FT4 0.86 uIU/mL (0.47-4.68)
== END ==
PROVIDERS: Family Provider Student in an Organized Health Care Education/Training Program; PCP Internal Medicine; Referring Provider Internal Medicine; Visit Provider Internal Medicine
DX: E03.9 Hypothyroidism, unspecified (principal)
CPT/HCPCS: 36415; 84443

== ENCOUNTER → 2024-01-24 08:59 | Outpatient (CLI) | payer MEDICARE, SELFPAY ==
--- NOTE | 2024-01-24 09:02 | DI.RAD.S_ITS ---
PROCEDURE: XR FOOT RT MIN 3V INDICATIONS: FOOT PAIN TECHNIQUE: 3 views of the foot were acquired. COMPARISON: None. FINDINGS: Bones: Surgical staple is seen over the 1st proximal phalanx. There is also a screw over the 2nd metatarsal head with slight deformity. Medial 1st metatarsal shaving noted to correct hallux valgus deformity Joints: Mild degenerative change noted in the 1st MTP and all of the interphalangeal joints. Soft tissues: There is mild calcification of the Achilles tendon insertion on the calcaneus. IMPRESSION: Chronic findings as described Dictated by: Noah Leal M.D. on 01/25/2024 at 8:39 Approved by: Noah Leal M.D. on 01/25/2024 at 8:41
--- NOTE | 2024-01-24 09:02 | DI.RAD.S_ITS ---
PROCEDURE: XR FOOT LT MIN 3V INDICATIONS: FOOT PAIN TECHNIQUE: 3 views of the foot were acquired. COMPARISON: None. FINDINGS: Bones: No osseous abnormality. Joints: Mild degenerative change present in the 1st MTP and all interphalangeal joints. Soft tissues: Calcification of the Achilles tendon insertion on the calcaneus noted. There is mild diffuse soft tissue swelling IMPRESSION: Mild diffuse soft tissue swelling. Dictated by: Noah Leal M.D. on 01/25/2024 at 8:33 Approved by: Noah Leal M.D. on 01/25/2024 at 8:36
[2024-01-24 10:14] LABS: Hematocrit 43.1 % (36-46); Hemoglobin 14.4 g/dL (12.0-16.0); Mean Corpuscular HGB Conc 33.5 % (30-36); Mean Corpuscular Hemoglobin 33.6 PG (26-34); Mean Corpuscular Volume 100.4 fL (80-100); Platelet Count 172 X10^3/uL (150-400); Red Blood Cell Count 4.29 X10^6/uL (4.0-5.2); Red Cell Distribution Width 13.1 % (11.6-14.8)
[2024-01-24 10:36] LABS: BUN Creatinine Ratio 13.8 (6-22); Blood Urea Nitrogen 12 mg/dL (7-17); Calcium 9.7 mg/dL (8.4-10.2); Carbon Dioxide 24 mmol/L (22-32); Chloride 107 mmol/L (98-107); Cholesterol 183 mg/dL (140-199); Estimated Glomerular Filt Rate > 60 mL/min (>60); Glucose 114 mg/dL (80-110); HDL Cholesterol 54 mg/dL (40-60); HEMOLYSIS < 15 (0-50); LDL Cholesterol Calculated 107 mg/dL (<100); Potassium 4.2 mmol/L (3.4-5.1); Sodium 140 mmol/L (137-145); Triglycerides 111 mg/dL (35-150)
== END ==
PROVIDERS: Internal Medicine Cardiovascular Disease; Family Provider Student in an Organized Health Care Education/Training Program; PCP Internal Medicine; Referring Provider Podiatrist Foot & Ankle Surgery; Visit Provider Podiatrist Foot & Ankle Surgery
DX: M79.671 Pain in right foot (principal); E78.5 Hyperlipidemia, unspecified; M79.672 Pain in left foot; Z79.01 Long term (current) use of anticoagulants; I48.92 Unspecified atrial flutter
CPT/HCPCS: 36415; 73630; 80048; 80061; 85027

== ENCOUNTER → 2024-03-21 08:27 | Outpatient (CLI) | payer MEDICARE, SELFPAY ==
--- NOTE | 2024-03-21 08:29 | DI.US.S_ITS ---
PROCEDURE: US ART LOW EXT BILAT W/NATALIE INDICATIONS: Mononeuropathy/hammer toes, left foot TECHNIQUE: Color and pulse Doppler interrogation was performed of both lower extremity arterial systems, with image documentation. COMPARISON: None. FINDINGS: Right lower extremity: Common femoral artery: 117 cm/sec, with triphasic flow. Deep femoral artery: 84.2 cm/sec, with triphasic flow. Proximal superficial femoral artery: 99.6 cm/sec, with biphasic flow. Mid superficial femoral artery: 149 cm/sec, with biphasic flow. Distal superficial femoral artery: 100.9 cm/sec, with biphasic flow. Popliteal artery: 90.6 cm/sec, with biphasic flow. Posterior tibial artery: 72.6 cm/sec, with biphasic flow. Anterior tibial artery/dorsalis pedis: 55.5 cm/sec, with biphasic flow. Layne-scale imaging description: Mild to moderate scattered atheromatous disease. Left lower extremity: Common femoral artery: 128 cm/sec, with biphasic flow. Deep femoral artery: 60.7 cm/sec, with biphasic flow. Proximal superficial femoral artery: 94.9 cm/sec, with biphasic flow. Mid superficial femoral artery: 114.2 cm/sec, with biphasic flow. Distal superficial femoral artery: 71.6 cm/sec, with biphasic flow. Popliteal artery: 39.3 cm/sec, with biphasic flow. Posterior tibial artery: 56.7 cm/sec, with biphasic flow. Anterior tibial artery/dorsalis pedis: 48 cm/sec, with biphasic flow. Layne-scale imaging description: Minimal scattered atheromatous disease. IMPRESSION: Right 20-49% stenosis of the right mid superficial femoral artery. 1-19% stenosis of the right common and distal superficial femoral arteries. Left 20-49% stenosis of the left common femoral artery. 1-19% stenosis of the left mid superficial femoral artery. Dictated by: Moise Rivers M.D. on 03/22/2024 at 0:55 Approved by: Moise Rivers M.D. on 03/22/2024 at 1:01
== END ==
PROVIDERS: Family Provider Student in an Organized Health Care Education/Training Program; PCP Internal Medicine; Referring Provider Podiatrist Foot & Ankle Surgery; Visit Provider Podiatrist Foot & Ankle Surgery
DX: I70.203 Unspecified atherosclerosis of native arteries of extremities, bilateral legs (principal); G58.9 Mononeuropathy, unspecified; M20.42 Other hammer toe(s) (acquired), left foot
CPT/HCPCS: 93922; 93925

== ENCOUNTER 2024-04-15 10:17 | Day surgery (SDC) | payer MEDICARE, SELFPAY ==
[2024-04-08 13:54] VITALS: BMI 31.1
[2024-04-15] VITALS (8 sets, daily range): BP systolic 104–141; BP diastolic 53–75; PULSE 90–101; RESP 12–16; TEMP 36.2–36.9; O2SAT 94–97; BMI 31.1
--- NOTE | 2024-04-15 09:15 | PM.PREOP ---
Pre-operative Note Interval Note History & Physical reviewed/Exam performed by Physician: Yes Changes to H&P: No
--- NOTE | 2024-04-15 09:15 | PM.HP.1 ---
History of Present Illness History of Present Illness Chief complaint: Left Hammertoe Repair Narrative: 78 year old female here for pre-op. She reports having had a previous outpatient surgery on her other foot 12 years ago for a bunion and straightening of toes. She mentions that the healing process went well, with 6 weeks of non-weight bearing. The patient confirms she is still taking Eloquis and can hold it before surgery for three days. She prefers a shoe over a boot, as the boot causes her too much discomfort. The patient has previously taken Percocet and experienced dizziness, so she cut the pill in half. She expresses no other issues with taking Percocet. The patient is open to either general anesthesia or light sedation for the surgery, stating that whatever works with a colonoscopy is fine. Jordan mentions being a and living alone, which may affect her availability for transportation and assistance during the post-operative period. Patient denies n/v/f/c/sob/cp. 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) History of colon polyps Surgical History (Updated 04/08/24 @ 13:57 by Mary Jane Sanon RN) Hx of bilateral mastectomy (~2019) Hx of laminectomy (~1984) History of stem cell transplant (2002) Anesthesia complication Status post tubal ligation (1977) History of spinal surgery (1981) History of total mastectomy (04/16/14) Status post bunionectomy (2011) Family History Father Cancer Osteoporosis Mother Generalized onset seizure disorder Hypertension Sister Age: 82 Hypertension High cholesterol Osteoporosis Grandfather Cancer Grandmother Pneumonia Grandfather Cancer Social History details: (Rodol[place]) 2009, three grown children, 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) household members: none Smoking Status: Never smoker alcohol intake: current Meds Home Medications and Allergies Home Medications Medication Instructions Recorded Confirmed Type apixaban 5 mg tablet (Eliquis) 5 mg BID ##0 03/18/16 03/25/24 History cholecalciferol (vitamin D3) 25 1,000 unit PO DAILY 09/28/17 03/25/24 History mcg (1,000 unit) capsule rosuvastatin 5 mg tablet 5 mg PO HS 10/16/17 03/25/24 History flecainide 100 mg tablet 100 mg PO Q12H PRN tachycardia 12/07/21 03/25/24 History azelastine 137 mcg (0.1 %) nasal 1 spray intranasal BID PRN 05/30/23 03/25/24 History spray calcium carbonate-vitamin D3 1 tab PO DAILY 05/30/23 03/25/24 History cetirizine 10 mg tablet (Aller-Noy) 10 mg PO DAILY 05/30/23 03/25/24 History metoprolol tartrate 50 mg tablet 50 mg PO BID 05/30/23 03/25/24 History multivitamin 1 tab PO DAILY 05/30/23 03/25/24 History ipratropium bromide 42 mcg (0.06 2 spray intranasal TID-QID PRN 07/05/23 03/25/24 Rx %) nasal spray allergy symptoms #15 mL duloxetine 30 mg capsule,delayed 30 mg PO BID #180 caps 03/25/24 03/25/24 Rx release (Cymbalta) levothyroxine 88 mcg tablet 88 mcg PO DAILY #90 tabs 03/25/24 03/25/24 Rx trazodone 50 mg tablet 75 mg (1.5 x 50 mg) PO HS #135 tabs 03/25/24 03/25/24 Rx Allergies Allergy/AdvReac Type Severity Reaction Status Date / Time Sulfa (Sulfonamide Allergy Mild rash Verified 03/25/24 15:56 Antibiotics) [SULFA (SULFONAMIDE ANTIBIOTICS)] Iodinated Contrast Media Allergy Unknown Verified 03/25/24 15:56 morphine Allergy Verified 04/08/24 13:58 Penicillins Allergy Verified 04/08/24 13:58 amoxicillin [From AUGMENTIN] AdvReac Mild diarrhea Verified 01/06/25 15:56 clavulanic acid AdvReac Mild diarrhea Verified 03/25/24 15:56 [From AUGMENTIN] codeine [CODEINE] AdvReac Mild weakness Verified 03/25/24 15:56 [id number] Reductase AdvReac Mild leg pain Verified 03/25/24 15:56 Inhibitor [[id number] REDUCTASE INHIBITOR] Exam Extrem Other: Left lower extremity: rigid mallet toes 2 and 3 and hammertoes 4 and 5. Assessment & Plan Assessment & Plan narrative: 1. Left foot hammertoes 2. Left foot contractures Patient seen and evaluated. Surgical plan: left foot hammertoes 2-4 correction and metatarsophalangeal joints 2-4 capsulotomy. Risks and benefits of the procedure discussed with all questions answered to patient's satisfaction. Reviewed potential complications that may include but not limited to the following: DVT, failure to resolve all symptoms, infection, nerve injury, bleeding, recurrence, or wound. Reviewed surgical technique and general aftercare protocols. All questions answered to patient's satisfaction with no guarantees made. Patient verbalized understanding and agreed with surgical plan. Time-Based Coding :: [TOTAL MINUTES] spent with patient and on the chart (including review of chart, obtaining history, exam, reviewing outside data, placing orders, documenting exam and treatment plan, and counseling patient) on [DATE].
[2024-04-15] MEDS: LACTATED RINGERS 1,000 ML 42 ML IV (11:00)
[2024-04-15] MEDS: CLINDAMYCIN 900 MG/50 ML PIGGYBACK 50 MG IV (12:20)
[2024-04-15] MEDS: LIDOCAINE 1% 20 ML INJ (12:30)
--- NOTE | 2024-04-15 12:50 | SUR.OPER ---
Supine on padded OR bed, head on pillow and rolled blanket placed under pt neck per pt request, arms secured on padded arm boards at <90 degrees abduction, [place] roll placed under Right wrist for proper alignment. Legs uncrossed, safety belt at thigh, tape over blanket over lower legs. Pt positioned by Maribell Delgado RN.
[2024-04-15] MEDS: ACETAMINOPHEN IV 1,000 MG/100 ML VIAL 400 MG IV (13:50)
[2024-04-15] MEDS: BUPIVACAINE LIPOSOME 266 MG/20 ML VIAL INJ (14:16)
[2024-04-15] MEDS: BUPIVACAINE 0.5% (PF) 10 ML VIAL INJ (14:21)
[2024-04-15] MEDS: KETOROLAC 30 MG/ML VIAL 15 MG IV (14:55)
--- NOTE | 2024-04-15 21:22 | PM.OP.1 ---
Operative Date/Time/Diagnoses Date of procedure: 04/15/24 Pre-op diagnosis: 1. Left foot hammer(mallet) toes 2, 3 and 4 2. Left foot contracture, second metatarsophalangeal joint Post-op diagnosis: same Procedure & Clinicians Procedure: 1. Left foot hammertoes 2, 3, and 4 corrections with fusion of distal interphalangeal joints 2. Left foot second metatarsophalangeal joint capsulotomy Same procedure as scheduled: Yes Surgeon: Gregg Olivo Click Yes if Unassisted: Yes Anesthesia Type: General Operative Notes Findings: Consistent with diagnosis Closure Type: primary Specimen(s): none sent Estimated Blood Loss (mL): 25 Blood products transfused: none Tourniquet time (min): 60 Procedure in detail: The patient was identified in the preoperative holding area and brought back to the operating room. She was placed on the operating table in supine position. General anesthesia was initiated and the time out protocol completed. The patient's name and site of surgery were confirmed. Her left foot was prepped and draped in the usual aseptic manner. Local anesthetic was administered using 10 cc of 1% lidocaine plain. 18 inch tourniquet was applied over well-padded surface at 200 mmHg. Timeout was performed with the surgical team all in agreement. Attention was directed to left lesser toes with the same procedure carried out in sequence from digits two to four. Transverse elliptical incisions were made over the distal interphalangeal joint on each toe using a #15 scalpel with dissections carried out in layers. The soft tissue structures were carefully reflected, and a sagittal bone saw and a curette was used to prepare each joint for fusion. A double-ended K wire was used until proper alignment was attained and verified on fluoroscopy. Following manufacture instructions, an appropriate 2.5 mm compression screw was inserted to all three toes. In addition, flexor tenotomy was performed on digits two and three using a # 15 scalpel. As a separate procedure site, attention was then directed to the left second metatarsophalangea joint. A #15 scalpel was used to release the medial and lateral collateral ligaments with percutaneous incisions made on at the respective locations. Tourniquet was released at 60 minutes with adequate perfusion noted to all toes. All surgical sites were irrigated with copious saline. All procedure sites were closed from deep to superficial using 3-0 vicryl, 3-0 nylon, and 4-0 prolene. 15 cc of 1:1 Exparel and 0.5% marcaine plain was inected to forefoot. Incision sites were covered with Xeroform, gauze, abdominal pad, Kerlix, and Greg bandage. Surgical limb was placed in post-op shoe. Patient tolerated procedure and was transferred to post-anesthesia care unit with all vital signs stable. Complications: none Post-operative Condition: stable Disposition: same day surgery Plan for aftercare: NWB to surgical limb. Elevate above heart on 2+ pillows. Ice behind knee or ankle 15 minutes/hour when awake. Follow-up as scheduled.
== END 2024-04-15 15:27 | disposition home or self-care (01) ==
PROVIDERS: PCP Internal Medicine; Referring Provider Podiatrist Foot & Ankle Surgery; Visit Provider Podiatrist Foot & Ankle Surgery
PROC: (CPT 28285; principal; 2024-04-15 12:00)
DX: M20.42 Other hammer toe(s) (acquired), left foot (principal); M24.575 Contracture, left foot; E66.9 Obesity, unspecified; E03.9 Hypothyroidism, unspecified; F41.9 Anxiety disorder, unspecified; F32.A Depression, unspecified; Z68.31 Body mass index [BMI] 31.0-31.9, adult; Z90.13 Acquired absence of bilateral breasts and nipples; Z79.01 Long term (current) use of anticoagulants; I48.92 Unspecified atrial flutter; I48.0 Paroxysmal atrial fibrillation; Z85.3 Personal history of malignant neoplasm of breast; Z85.828 Personal history of other malignant neoplasm of skin; Z85.72 Personal history of non-Hodgkin lymphomas; Z86.0100 Personal history of colon polyps, unspecified
CPT/HCPCS: 28285 ×3; C1713; J0131; J0666; J1100; J1885; J2405; J2704; J3010

== ENCOUNTER → 2024-05-08 11:09 | Outpatient (CLI) | payer MEDICARE, SELFPAY ==
--- NOTE | 2024-05-08 11:11 | DI.RAD.S_ITS ---
PROCEDURE: XR FOOT LT MIN 3V INDICATIONS: foot pain TECHNIQUE: 3 views of the foot were acquired. COMPARISON: [facility], CR, XR FOOT RT MIN 3V, 01/24/2024, 9:09. 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 Joints: Arthrodesis of the 2nd, 3rd and 4th DIP provided by single screws show anatomic alignment. Soft tissues: There is calcification of the Achilles tendon insertion on the calcaneus. Mild diffuse soft swelling noted. IMPRESSION: Second , 3rd and 4th DIP arthrodesis that anatomic alignment. Dictated by: Noah Leal M.D. on 05/09/2024 at 11:35 Approved by: Noah Leal M.D. on 05/09/2024 at 11:37
== END ==
PROVIDERS: PCP Internal Medicine; Referring Provider Podiatrist Foot & Ankle Surgery; Visit Provider Podiatrist Foot & Ankle Surgery
DX: M65.872 Other synovitis and tenosynovitis, left ankle and foot (principal); M79.672 Pain in left foot; M79.89 Other specified soft tissue disorders; Z98.1 Arthrodesis status
CPT/HCPCS: 73630

== ENCOUNTER → 2024-06-17 09:44 | Outpatient (CLI) | payer MEDICARE, SELFPAY ==
--- NOTE | 2024-06-17 09:47 | DI.RAD.S_ITS ---
PROCEDURE: XR FOOT LT MIN 3V INDICATIONS: FOOT PAIN TECHNIQUE: 3 views of the foot were acquired. COMPARISON: [facility], CR, XR FOOT LT MIN 3V, 05/08/2024, 11:33. FINDINGS: Bones: Congenital foreshortening 1st metatarsal noted. Joints: Arthrodesis across the 2nd, 3rd and 4th DIP provided by screws appreciated. Alignment is near anatomic. Fusion is incomplete. Mild degeneration 1st MTP and all the PIP is appreciated Soft tissues: Calcification Achilles tendon insertion on the calcaneus noted. There is moderate diffuse soft tissue swelling IMPRESSION: Arthrodesis 2nd 3rd and 4th DIP joints anatomic alignment. Degeneration Dictated by: Noah Leal M.D. on 06/17/2024 at 10:49 Approved by: Noah Leal M.D. on 06/17/2024 at 10:51
== END ==
PROVIDERS: PCP Internal Medicine; Referring Provider Podiatrist Foot & Ankle Surgery; Visit Provider Podiatrist Foot & Ankle Surgery
DX: M19.072 Primary osteoarthritis, left ankle and foot (principal); M79.672 Pain in left foot; M79.89 Other specified soft tissue disorders; Z98.1 Arthrodesis status
CPT/HCPCS: 73630

== ENCOUNTER 2024-08-30 19:50 | Emergency (ER) | payer MEDICARE, SELFPAY ==
[2024-08-30 19:54] VITALS: BP 164/72; PULSE 86; RESP 16; TEMP 36.2; O2SAT 100; BMI 31.3
--- NOTE | 2024-08-30 21:06 | ED_ITS ---
HPI - Back Pain/Injury General Chief Complaint: Back Pain/Injury Stated Complaint: fell on back Time Seen by Provider: 08/30/24 21:06 Source: patient History of Present Illness HPI Narrative: 79-year-old female with a past medical history of hyperlipidemia, hypertension, hypothyroidism, AFib on Eliquis, comes into the ED from home for evaluation of low back pain, states that she fell at home and landed on her right hip/buttock region, states that it was because she lost her balance denies any syncopal or presyncopal symptoms. Patient is stating that she feels like she is having muscle spasms to her low back, states it is worse with motion, but denies any numbness weakness tingling to lower extremities denies any saddle paresthesias denies any bowel or urinary incontinence or retention. States that she did take a Percocet at around 7:15 p.m. she states that after her fall she was able to stand bear weight ambulate by herself she denies any head strike or LOC. Related Data Home Medications ?Medication ?Instructions ?Recorded ?Confirmed apixaban 5 mg tablet (Eliquis) 5 mg BID ##0 03/18/16 0 04/15/24 cholecalciferol (vitamin D3) 25 1,000 unit PO DAILY 04/15/24 mcg (1,000 unit) capsule rosuvastatin 5 mg tablet 5 mg PO HS 10/16/17 04/15/24 flecainide 100 mg tablet 100 mg PO Q12H PRN tachycard ia 12/07/21 04/15/24 azelastine 137 mcg (0.1 %) nasal 1 spray intranasal BI D PRN Allergy 05/30/23 04/15/24 spray Symptoms calcium carbonate-vitamin D3 1 tab PO DAILY 05/30/23 0 04/15/24 cetirizine 10 mg tablet (Aller-Noy) 10 mg PO DAILY 03/1204/15/24 metoprolol tartrate 50 mg tablet 50 mg PO BID 05/30/23 04/15/24 multivitamin 1 tab PO DAILY 05/30/2303/21 Previous Rx's ?Medication ?Instructions ?Recorded ipratropium bromide 42 mcg (0.06 2 spray intranasal TI D-QID PRN 04/17/24 %) nasal spray allergy symptoms #15 mL duloxetine 30 mg capsule,delayed 30 mg PO BID #180 cap s 03/25/24 release (Cymbalta) levothyroxine 88 mcg tablet 88 mcg PO DAILY #90 tabs 0 03/25/24 trazodone 50 mg tablet 75 mg (1.5 x 50 mg) PO HS #1 35 tabs 03/25/24 ondansetron 4 mg disintegrating 4 mg PO Q8H PRN nausea and 04/15/24 tablet vomiting #14 tabs oxycodone-acetaminophen 5 mg-325 1 tab PO Q6H PRN pain #20 tabs 04/15/24 mg tablet (Percocet) Bilateral prosthesis #2 ea 08/29/24 Surgical bra #4 ea 08/29/24 cyclobenzaprine 10 mg tablet 10 mg PO BEDTIME PRN musc le spasm 08/30/24 1 week #7 tabs lidocaine 5 % topical patch 1 patch topical DAILY 1 we ek #15 ea 08/30/24 Allergies Allergy/AdvReac Type Severity Reaction Status Date / Time Sulfa (Sulfonamide Allergy Mild rash Verified 08/30/24 19:59 Antibiotics) (SULFA (SULFONAMIDE ANTIBIOTICS)) Iodinated Contrast Media Allergy Unknown Verified 08/30/24 19:59 morphine Allergy Verified 08/30/24 19:59 Penicillins Allergy Rash Verified 08/30/24 19:59 amoxicillin (From AUGMENTIN) AdvReac Severe diarrhea Verified 08/30/24 19:59 clavulanic acid (From AdvReac Severe diarrhea Verified 08/30/24 19:59 AUGMENTIN) codeine (CODEINE) AdvReac Mild weakness Verified 08/30/24 19:59 [id number] Reductase AdvReac Mild leg pain Verified 08/30/24 19:59 Inhibitor ([id number] REDUCTASE INHIBITOR) Review of Systems Review of Systems Narrative: General: Denies fever, chills, weight loss HEENT: Denies headache, eye drainage, eye irritation, head trauma, sore throat, voice change Cardiovascular: Denies any chest pain, palpitations, tachycardia Respiratory: Denies any shortness of breath, cough, wheeze, stridor GI/: Denies any abdominal pain, nausea, vomiting, diarrhea, bright red blood per rectum, melanotic stools, urinary frequency, urinary retention, dysuria, hematuria MSK: Positive right-sided lower back rib pain and right-sided hip pain Skin: Denies any rashes, lesions, discoloration Neuro: Denies any headache, lightheadedness, dizziness, fainting, weakness Psych: Denies SI/HI Patient History Medical History (Updated 08/30/24 @ 23:42 by Alejandro Stoll DO) Atrial flutter Impaired fasting glucose History of nonmelanoma skin cancer Elevated LFTs Depression, major, recurrent Obesity (BMI 30.0-34.9) Allergic rhinitis History of non-Hodgkin's lymphoma History of breast cancer Paroxysmal atrial flutter Frequent UTI Depression Recurrent sinusitis Colon polyps (2012) GERD (gastroesophageal reflux disease) Urinary incontinence BCC (basal cell carcinoma), face BCC (basal cell carcinoma), hand 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) History of colon polyps Surgical History (Updated 04/08/24 @ 13:57 by Mary Jane Sanon RN) Hx of bilateral mastectomy (~2019) Hx of laminectomy (~1984) History of stem cell transplant (2002) Anesthesia complication Status post tubal ligation (1977) History of spinal surgery (1981) History of total mastectomy (04/16/14) Status post bunionectomy (2011) Family History Father Cancer Osteoporosis Mother Generalized onset seizure disorder Hypertension Sister Age: 83 Hypertension High cholesterol Osteoporosis Grandfather Cancer Grandmother Pneumonia Grandfather Cancer Social History details: ([place]) 2009, three grown children, 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) household members: none alcohol intake: current alcohol intake frequency: holidays/special occasions only Exam Narrative Exam Narrative: General: Cooperative, well-developed, not in acute distress HEENT: Normocephalic, atraumatic, PERRLA, normal sclera, eyelids normal Neck: Active full range of motion, atraumatic Chest: Normal to inspection, negative crepitus, no overlying erythema ecchymosis Respiratory: Normal respiratory effort, not in acute respiratory distress, clear to auscultation bilaterally negative cough, wheeze, tachypnea, rhonchi, rales Cardiology: Regular rate rhythm negative gallop, murmur, rubs GI/: No tenderness to palpation, soft, non rigid, normal to inspection, exam deferred MSK: Full active range of motion in all 4 extremities, atraumatic, there is mild tenderness to palpation of the posterior inferior aspects of the right ribs but no overlying ecchymosis no gross deformity, there is no tenderness to palpation of the midline lumbar spine, bilateral lower extremities are neurovascularly intact Skin: No rashes or lesions noted Neuro: Alert awake oriented x3, moves all 4 extremities spontaneously, cranial nerves intact, able to answer all questions appropriately follows commands appropriately Psych: Cooperative, negative suicidal or homicidal ideations Initial Vital Signs Initial Vital Signs: Vital Signs Temperature 97.1 F L 08/30/24 19:54 Pulse Rate 86 08/30/24 19:54 Respiratory Rate 16 08/30/24 19:54 Blood Pressure 164/72 H 08/30/24 19:54 Pulse Oximetry 100 08/30/24 19:54 Oxygen Delivery Method Room Air 08/30/24 19:54 Course Orders Ordered: ED Orders 08/30/24 21:07 CT lumbar spine wo con Stat 08/30/24 21:12 CT chest wo con Stat Discontinued Medications Diazepam (Diazepam 2 Mg Tablet) 2 mg PO NOW ONE Stop: 08/30/24 21:13 Last Admin: 08/30/24 21:35 Dose: 2 mg Documented By: CHASITY Vital Signs Vital signs: Vital Signs - 8 hr 08/30/24 19:54 Temperature 97.1 F L Pulse Rate 86 Respiratory Rate 16 Blood Pressure 164/72 H Pulse Oximetry 100 Oxygen Delivery Method Room Air MDM - Back Pain/Injury Differential Diagnosis Differential diagnosis: Likely strain of lumbar region and other (Rib fracture, contusion) Imaging Data CT lumbar: Radiologist's Impression: [place] [address] CT Scan Report Signed Patient: Kiersten Ortega MR#: [id number] : 1945 Acct:[id number] Age/Sex: 79 / F Date of Service: 08/30/24 Loc: ED Accession Number: [id number] Procedure: CT lumbar spine wo con Ordering Provider: Alejandro Stoll D.O. PROCEDURE: CT LUMBAR SPINE WO CON INDICATIONS: low back pain s/p fall TECHNIQUE: Noncontrast 3 mm thick sections acquired from the T12 level to the sacrum. Sagittal and coronal reformats were constructed. For radiation dose reduction, the following was used: automated exposure control. COMPARISON: None. FINDINGS: Image quality: Excellent. Bones: There is normal bony alignment. No acute vertebral body compression fractures. No suspicious lytic or blastic bony lesions. No pars defects. Multilevel DDD. Most pronounced at L4-L5 and L5-S1. Soft tissues: No retroperitoneal masses or hematomas. Visualized aorta is normal in caliber. Circumferential calcified atherosclerotic plaque. Hepatic steatosis. IMPRESSION: 1. No acute osseous abnormality. No compression fracture. 2. Hepatic steatosis. CT chest: Radiologist's Impression: [address] [address] [address] Scan Report Signed Patient: Kiersten Ortega MR#: [id number] : 1945 Acct:[id number] Age/Sex: 79 / F Date of Service: 08/30/24 Loc: ED Accession Number: [id number] Procedure: CT chest wo con Ordering Provider: Alejandro Stoll D.O. PROCEDURE: CT CHEST WO CON INDICATIONS: trauma / posterior right lower sided pain TECHNIQUE: Noncontrast 5 mm thick sections acquired from the pulmonary apices to the posterior costophrenic angles. 1 mm lung window, 5 mm thick coronal and sagittal and 7 mm axial MIP reformats were then acquired. For radiation dose reduction, the following was used: automated exposure control, adjustment of mA and/or kV according to patient size. COMPARISON: [facility], CT, CT LUMBAR SPINE WO CON, 08/30/2024, 21:18. FINDINGS: Image quality: Diagnostic. Lower Neck: No enlarged lymph nodes. Thyroid: No thyroid nodules which require sonographic follow up, per consensus guidelines. Axillae: No enlarged lymph nodes. Chest Wall: Mastectomies. Bones: No suspicious osseous lesion. Right posterior lateral 7th rib fracture, (2/45). Mild displacement. Lungs and Pleura: No pneumothorax or pleural effusions. No consolidation or suspicious nodules. Left apex pulmonary nodule measuring 0.3 cm, (3/43). Central airways are clear. Heart: Heart size is normal. Moderate coronary artery calcifications. No pericardial effusion. Thoracic Vessels: The aorta and pulmonary arteries demonstrate normal size. Mediastinum and Valeria: No enlarged lymph nodes. Esophagus: No wall thickening. No hiatal hernia. Upper Abdomen: Visualized upper abdomen solid organs and bowel loops appear normal. Hepatic steatosis. IMPRESSION: 1. Right posterior lateral 7th rib fracture. No hemothorax or pneumothorax. 2. Lungs are clear. 3. Hepatic steatosis. [facility] Narrative Medical decision making narrative: 79-year-old female with a past medical history of hypertension, AFib on Eliquis, hypothyroidism, hyperlipidemia, presenting for right-sided rib pain and right- sided hip/low back pain after mechanical trip and fall earlier today. She denies head strike denies presyncopal or syncopal symptoms, she states that she just lost her balance fell onto the right side, states she was able to stand bear weight ambulate immediately after but due to persistent must self spasming came into the ED for further evaluation treatment. She states that she did take a Percocet prior to arrival and did help significantly but pain feels like it is spasming whenever she moves. On exam patient has some tenderness to palpation of the posterior inferior aspect of the right ribs but no gross deformity no overlying ecchymosis, she is neurovascularly intact bilateral lower extremities. Patient was given Valium here with improvement of her symptoms, CT scan of the lumbar and chest was performed. 2226: Patient was re-evaluated no new ecchymoses time, states does have improved symptoms after administration of Valium, informed her that we are still awaiting CT scan results understands and agrees with this plan. 2340: Patient was re-evaluated stating symptoms have improved, informed her of her CT scan results which were consistent with a right posterolateral 7th rib fracture but no hemothorax or pneumothorax, remainder of her imaging without any other acute fractures. Patient was told to follow up with the primary care strict return precautions given she verbalized understanding of this and agrees to being discharged home with outpatient follow up Discharge Plan Departure Patient Disposition: Home Clinical Impression: Fracture of rib Instructions: DI for Rib Fracture Activity Restrictions/Additional Instructions: Please follow up with your primary care doctor Please read the discharge instructions sheet carefully and bring all papers to all doctor follow-up visits, as it may contain information that your doctor may want to see. Disease processes change and evolve, if your symptoms worsen or if you develop any new symptoms that are concerning to you please return for evaluation. Your evaluation today does not show any evidence of any life-threat ening/serious illnesses requiring admission to the hospital or surgery. Please follow-up with your doctor for re-evaluation in approximately 1 day. Seek immediate medical attention for any worrisome symptoms. *If you do not have a primary care provider please contact the [facility] Resource line at [phone]. They will ask some questions about your medical history and help get you set up with a doctor in the community. Prescriptions: New lidocaine 5 % adhesive patch,medicated 1 patch topical DAILY 7 Days Qty: 15 0RF Rx Instructions: leave on most painful area for up to 12 hrs cyclobenzaprine 10 mg tablet 10 mg PO BEDTIME PRN (Reason: muscle spasm) 7 Days Qty: 7 0RF No Action Eliquis 5 MG tablet 5 mg BID Qty: 0 ipratropium bromide 42 mcg (0.06 %) spray,non-aerosol 2 spray intranasal TID-QID PRN (Reason: allergy symptoms) Qty: 15 11RF Rx Instructions: administer into each nostril (DME) Surgical bra See Rx Instructions .Route .MEDSUPPLY Qty: 4 2RF Rx Instructions: patient needs surgical bras for bilateral mastectomy (DME) Bilateral prosthesis See Rx Instructions .Route .MEDSUPPLY Qty: 2 0RF Rx Instructions: patient needs bilateral prosthesis for bilateral mastectomy metoprolol tartrate 50 mg tablet 50 mg PO BID calcium carbonate-vitamin D3 1 tab PO DAILY multivitamin Tablet 1 tab PO DAILY azelastine 137 mcg (0.1 %) aerosol,spray 1 spray NASAL BID PRN (Reason: Allergy Symptoms) Rx Instructions: administer into each nostril cetirizine [Aller-Noy] 10 mg tablet 10 mg PO DAILY cholecalciferol (vitamin D3) 1,000 unit capsule 1,000 unit PO DAILY flecainide 100 mg tablet 100 mg PO Q12H PRN (Reason: tachycardia) duloxetine [Cymbalta] 30 mg capsule,delayed release(DR/EC) 30 mg PO BID Qty: 180 3RF levothyroxine 88 mcg tablet 88 mcg PO DAILY Qty: 90 3RF trazodone 50 mg tablet 75 mg PO HS Qty: 135 3RF oxycodone-acetaminophen [Percocet] 5-325 mg tablet 1 tab PO Q6H PRN (Reason: pain) Qty: 20 0RF Patient Comments: new post op med ondansetron 4 mg tablet,disintegrating 4 mg PO Q8H PRN (Reason: nausea and vomiting) Qty: 14 0RF rosuvastatin 5 mg tablet 5 mg PO HS Referrals: Adolph Marrero MD [Primary Care Provider, Internal Medicine] Stand Alone Forms: Patient Portal/API
--- NOTE | 2024-08-30 21:12 | DI.CT.S_ITS ---
PROCEDURE: CT CHEST WO CON INDICATIONS: trauma / posterior right lower sided pain TECHNIQUE: Noncontrast 5 mm thick sections acquired from the pulmonary apices to the posterior costophrenic angles. 1 mm lung window, 5 mm thick coronal and sagittal and 7 mm axial MIP reformats were then acquired. For radiation dose reduction, the following was used: automated exposure control, adjustment of mA and/or kV according to patient size. COMPARISON: [facility], CT, CT LUMBAR SPINE WO CON, 08/30/2024, 21:18. FINDINGS: Image quality: Diagnostic. Lower Neck: No enlarged lymph nodes. Thyroid: No thyroid nodules which require sonographic follow up, per consensus guidelines. Axillae: No enlarged lymph nodes. Chest Wall: Mastectomies. Bones: No suspicious osseous lesion. Right posterior lateral 7th rib fracture, (2/45). Mild displacement. Lungs and Pleura: No pneumothorax or pleural effusions. No consolidation or suspicious nodules. Left apex pulmonary nodule measuring 0.3 cm, (3/43). Central airways are clear. Heart: Heart size is normal. Moderate coronary artery calcifications. No pericardial effusion. Thoracic Vessels: The aorta and pulmonary arteries demonstrate normal size. Mediastinum and Valeria: No enlarged lymph nodes. Esophagus: No wall thickening. No hiatal hernia. Upper Abdomen: Visualized upper abdomen solid organs and bowel loops appear normal. Hepatic steatosis. IMPRESSION: 1. Right posterior lateral 7th rib fracture. No hemothorax or pneumothorax. 2. Lungs are clear. 3. Hepatic steatosis. Dictated by: Chau Alston M.D. on 08/30/2024 at 23:19 Approved by: Chau Alston M.D. on 08/30/2024 at 23:25
[2024-08-30] MEDS: diazePAM 2 MG TABLET PO (21:35)
[2024-08-30] MEDS: LIDOCAINE 5% PATCH 1 EACH TOP (23:44)
[2024-08-30 23:51] VITALS: BP 147/67; PULSE 82; RESP 18; O2SAT 98
== END 2024-08-31 | disposition home or self-care (01) ==
PROVIDERS: Emergency Provider Student in an Organized Health Care Education/Training Program; PCP Internal Medicine
DX: S22.31XA Fracture of one rib, right side, initial encounter for closed fracture (principal); W18.30XA Fall on same level, unspecified, initial encounter
CPT/HCPCS: 71250; 72131; 99283; 99284

== ENCOUNTER → 2024-11-29 10:43 | Outpatient (CLI) | payer MEDICARE, SELFPAY ==
--- NOTE | 2024-11-29 10:44 | DI.MRI.S_ITS ---
PROCEDURE: MR ANKLE RT WO CON INDICATIONS: right ankle pain TECHNIQUE: Noncontrast sagittal T1 spin echo and T2 fast spin echo with fat saturation, axial proton density fast spin echo and T2 fast spin echo with fat saturation, coronal T1 spin echo and T2 fast spin echo with fat saturation through the ankle/hindfoot. COMPARISON: Merged With [facility], CR, XR FOOT LT MIN 3V, 06/17/2024, 9:52. Merged With [facility], MR, MR ANKLE RT WO CON, 06/01/2022, 11:51. FINDINGS: Image quality: Excellent. Bones and joints: No bone marrow contusions or fractures. No hindfoot coalitions. No osteochondral injuries of the talar dome. Small amount of joint effusion, no loose bodies. Well-defined dorsal calcaneal enthesophyte is seen. Medial structures: The posterior tibialis, flexor digitorum longus, and flexor hallucis longus tendons are intact. The posterior tibial neurovascular bundle appears normal within the tarsal tunnel, without extrinsic mass effect. The deltoid ligament and spring ligament are intact. Lateral structures: The anterior talofibular it ligament is thickened with intrasubstance T2 hyperintense signal. The calcaneofibular, and posterior talofibular ligaments appear intact. More superiorly, the anterior and posterior tibiofibular ligaments appear intact, as is the intermalleolar ligament. The tibiofibular syndesmosis is normal in width at 2 mm or less. The peroneus longus and brevis tendons demonstrate normal location and morphology. The sinus tarsi demonstrates normal fatty signal, without edema, fibrosis, or cyst formation. Anterior structures: The tibialis anterior, extensor hallucis longus, and extensor digitorum longus tendons appear intact. The dorsal talonavicular ligament appears intact. Posterior and plantar structures: Significant thickening involving distal Achilles tendon at its posterior calcaneal insertion is seen with intrasubstance T2 hyperintense signal and surrounding edema. No full-thickness Achilles tendon rupture . Medial and lateral bands of the plantar fascia are of normal thickness. No abductor digiti quinti muscle atrophy to suggest Mosley neuropathy. IMPRESSION: 1. Well-defined dorsal calcaneal enthesophyte with low to moderate grade partial-thickness tear involving distal Achilles tendon at its posterior calcaneal insertion. No full-thickness Achilles tendon rupture. 2. No fracture or dislocation. No osteochondral injuries of talar dome. Small joint effusion, no loose bodies. 3. Extensor, flexor, and peroneus tendons are intact. 4. Low-grade ATFL sprain. No full-thickness ankle ligament rupture. Medial ankle ligaments are intact. Dictated by: Mg Alfredo M.D. on 11/29/2024 at 13:33 Approved by: Mg Alfredo M.D. on 11/29/2024 at 13:43
== END ==
PROVIDERS: PCP Internal Medicine; Referring Provider Internal Medicine; Visit Provider Podiatrist Foot & Ankle Surgery
DX: M76.61 Achilles tendinitis, right leg (principal); S86.011A Strain of right Achilles tendon, initial encounter; S93.491A Sprain of other ligament of right ankle, initial encounter; M25.571 Pain in right ankle and joints of right foot; M77.31 Calcaneal spur, right foot; M25.471 Effusion, right ankle
CPT/HCPCS: 73721

== ENCOUNTER → 2025-01-01 10:00 | Outpatient (CLI) | payer MEDICARE, SELFPAY ==
[2025-01-01 11:11] LABS: Hematocrit 43.5 % (36-46); Hemoglobin 14.8 g/dL (12.0-16.0); Mean Corpuscular HGB Conc 34.0 % (30-36); Mean Corpuscular Hemoglobin 33.6 PG (26-34); Mean Corpuscular Volume 98.7 fL (80-100); Platelet Count 162 X10^3/uL (150-400)
[2025-01-01 12:00] LABS: Hemoglobin A1C% w Est Avg Glu 6.2 % (4.0-6.0)
[2025-01-01 12:02] LABS: Alanine Aminotransferase 105 IU/L (<35); Albumin 4.6 g/dL (3.5-5.0); Albumin Globulin Ratio 1.7 (1.0-2.8); Alkaline Phosphatase 58 U/L (38-126); Blood Urea Nitrogen 19 mg/dL (7-17); Calcium 10.3 mg/dL (8.4-10.2); Carbon Dioxide 26 mmol/L (22-32); Chloride 101 mmol/L (98-107); Cholesterol 192 mg/dL (140-199); Estimated Glomerular Filt Rate > 60 mL/min (>60); Globulin 2.7 g/dL (1.7-4.1); Glucose 99 mg/dL (70-99); HDL Cholesterol 53 mg/dL (40-60); HEMOLYSIS < 15 (0-50); Potassium 4.3 mmol/L (3.4-5.1); Sodium 138 mmol/L (137-145); Total Protein 7.3 g/dL (6.3-8.2); Triglycerides 147 mg/dL (35-150)
[2025-01-01 12:39] LABS: TSH w/ Reflex to FT4 1.46 uIU/mL (0.47-4.68)
== END ==
PROVIDERS: PCP Internal Medicine; Referring Provider Internal Medicine; Visit Provider Internal Medicine
DX: R73.01 Impaired fasting glucose (principal); E78.2 Mixed hyperlipidemia; I48.92 Unspecified atrial flutter
CPT/HCPCS: 36415; 80053; 80061; 83036; 84443; 85027

== ENCOUNTER 2025-01-23 08:11 | Day surgery (SDC) | payer MEDICARE, SELFPAY ==
[2025-01-08 08:33] VITALS: BMI 31.1
--- NOTE | 2025-01-23 05:53 | P.HP_ITS ---
History of Present Illness
--- NOTE | 2025-01-23 05:53 | PM.HP.1 ---
History of Present Illness History of Present Illness Chief complaint: Right Ankle Pain Narrative: 79 year old female reports ongoing pain in her Achilles tendon, which has worsened over the past two years, particularly during the summer. The pain is located in the back of her heel where a bone spur pushes on the Achilles tendon. The patient describes that the pain intensity varies depending on her activity level. She experiences throbbing pain when she is busy in the yard or on her feet for extended periods. The pain has been impacting her daily activities, causing discomfort when walking. Kiersten mentions that she has been using ice to alleviate the pain, which she finds helpful. She reports a fall in her backyard in August, resulting in a rib fracture. This incident delayed her appointment, but she states that the rib injury has since improved. [facility] Medical History (Updated 01/08/25 @ 08:44 by Mary Jane Sanon RN) H/O Mohs micrographic surgery for skin cancer Primary osteoarthritis of left knee Atrial flutter Impaired fasting glucose History of nonmelanoma skin cancer Elevated LFTs Depression, major, recurrent Obesity (BMI 30.0-34.9) Allergic rhinitis History of non-Hodgkin's lymphoma History of breast cancer Paroxysmal atrial flutter Frequent UTI Depression Recurrent sinusitis Colon polyps (2012) GERD (gastroesophageal reflux disease) Urinary incontinence BCC (basal cell carcinoma), face BCC (basal cell carcinoma), hand 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) History of colon polyps Surgical History (Updated 01/08/25 @ 08:51 by Mary Jane Sanon RN) History of insertion of tunneled central venous catheter (CVC) with port (2003) Hx of foot surgery (04/15/24) Hx of bilateral mastectomy (~2019) Hx of laminectomy (~1984) History of stem cell transplant (2002) Anesthesia complication Status post tubal ligation (1977) History of spinal surgery (1981) History of total mastectomy (04/16/14) Status post bunionectomy (2011) Family History Father Cancer Osteoporosis Mother Generalized onset seizure disorder Hypertension Sister Age: 83 Hypertension High cholesterol Osteoporosis Grandfather Cancer Grandmother Pneumonia Grandfather Cancer Social History details: (Rodolfo) 2009, three grown children, 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) household members: none alcohol intake: current Meds Home Medications and Allergies Home Medications ?Medication ?Instructions ?Recorded ?Confirmed ?Type apixaban 5 mg tablet (Eliquis) 5 mg BID ##0 03/18/16 01/01/25 History cholecalciferol (vitamin D3) 25 1,000 unit PO DAILY 09/28/17 01/01/25 History mcg (1,000 unit) capsule rosuvastatin 5 mg tablet 5 mg PO HS 10/16/17 01/01/25 History flecainide 100 mg tablet 100 mg PO Q12H PRN tachycardia 12/07/21 01/01/25 History azelastine 137 mcg (0.1 %) nasal 1 spray intranasal BID PRN Allergy 05/30/23 01/01/25 History spray Symptoms calcium carbonate-vitamin D3 1 tab PO DAILY 05/30/23 01/01/25 History cetirizine 10 mg tablet (Aller-Noy) 10 mg PO DAILY 05/30/23 01/01/25 History metoprolol tartrate 50 mg tablet 50 mg PO BID 05/30/23 01/01/25 History multivitamin 1 tab PO DAILY 05/30/23 01/01/25 History ipratropium bromide 42 mcg (0.06 2 spray intranasal TID-QID PRN 07/05/23 01/01/25 Rx %) nasal spray allergy symptoms #15 mL duloxetine 30 mg capsule,delayed 30 mg PO BID #180 caps 03/25/24 01/01/25 Rx release (Cymbalta) levothyroxine 88 mcg tablet 88 mcg PO DAILY #90 tabs 03/25/24 01/01/25 Rx trazodone 50 mg tablet 75 mg (1.5 x 50 mg) PO HS #135 tabs 03/25/24 01/01/25 Rx Bilateral prosthesis #2 ea 08/29/24 01/01/25 Rx Surgical bra #4 ea 08/29/24 01/01/25 Rx Allergies Allergy/AdvReac Type Severity Reaction Status Date / Time Sulfa (Sulfonamide Allergy Mild rash Verified 01/01/25 09:08 Antibiotics) (SULFA (SULFONAMIDE ANTIBIOTICS)) Iodinated Contrast Media Allergy Unknown Verified 01/01/25 09:08 morphine Allergy Verified 01/01/25 09:08 Penicillins Allergy Rash Verified 01/01/25 09:08 amoxicillin (From AUGMENTIN) AdvReac Severe diarrhea Verified 01/01/25 09:08 clavulanic acid (From AdvReac Severe diarrhea Verified 01/01/25 09:08 AUGMENTIN) codeine (CODEINE) AdvReac Mild weakness Verified 01/01/25 09:08 [id number]-VTR-[id number] Reductase AdvReac Mild leg pain Verified 01/01/25 09:08 Inhibitor ([id number] REDUCTASE INHIBITOR) Review of Systems Musculoskeletal Comments: Right ankle: prominent bone and bursa to posterior heel with severe pain. Right calf: decreased dorsiflexion. Assessment & Plan Assessment & Plan narrative: 1. Right heel Elvia 2. Right Achilles calcific tendinitis 3. Right ankle contracture Patient seen and evaluated. Surgical plan: right calcaneus ostectomy, Achilles tendon debridement and secondary repair, and gastrocnemius recession. Risks and benefits of the procedure discussed with all questions answered to patient's satisfaction. Reviewed potential complications that may include but not limited to the following: DVT, failure to resolve all symptoms, infection, nerve injury, bleeding, recurrence, or wound. Reviewed surgical technique and general aftercare protocols. All questions answered to patient's satisfaction with no guarantees made. Patient verbalized understanding and agreed with surgical plan. RTC for post-op. Time-Based Coding :: [TOTAL MINUTES] spent with patient and on the chart (including review of chart, obtaining history, exam, reviewing outside data, placing orders, documenting exam and treatment plan, and counseling patient) on [DATE].
[2025-01-23 08:41] VITALS: BP 135/68; PULSE 76; RESP 16; TEMP 36.6; O2SAT 95
[2025-01-23] MEDS: LACTATED RINGERS 1,000 ML 100 ML IV (08:54)
--- NOTE | 2025-01-23 09:02 | P.OP.PRE_ITS ---
Pre-operative Note
--- NOTE | 2025-01-23 09:02 | PM.PREOP ---
Pre-operative Note Interval Note History & Physical reviewed/Exam performed by Physician: Yes Changes to H&P: No
[2025-01-23] MEDS: SODIUM CHLORIDE 0.9% 1,000 ML, GENTAMICIN 80 MG IRR (10:57)
[2025-01-23 12:47] VITALS: BP 166/70; PULSE 90; RESP 16; TEMP 36.5; O2SAT 100
[2025-01-23 12:55] VITALS: BP 148/65; PULSE 92; RESP 11; TEMP 36.5; O2SAT 100
[2025-01-23 13:01] VITALS: BP 150/66; PULSE 97; RESP 14; TEMP 36.4; O2SAT 96
[2025-01-23 13:15] VITALS: BP 141/66; PULSE 87; RESP 15; TEMP 36.4; O2SAT 97
[2025-01-23 14:30] VITALS: BP 142/84; PULSE 74; RESP 16; TEMP 36.3; O2SAT 95
--- NOTE | 2025-01-23 22:42 | P.OP_ITS ---
Operative Date/Time/Diagnoses
--- NOTE | 2025-01-23 22:42 | PM.OP.1 ---
Operative Date/Time/Diagnoses Date of procedure: 01/23/25 Time of procedure: 09:30 Pre-op diagnosis: 1. Right calcaneal spur 2. Right Achilles calcific tendinitis 3. Right lower leg muscle contracture Post-op diagnosis: same Procedure & Clinicians Procedure: 1. Right MIS calcaneal ostectomy 2. Right Achilles tendon debridement and repair 3. Right gastrocnemius recession Same procedure(s) as scheduled: Yes Surgeon: Gregg Olivo Assisted?: No Anesthesia Type: General and Peripheral nerve block Operative Notes Findings: Consistent with diagnosis Applied: graft(s) and implant(s) Estimated Blood Loss (mL): 10 Tourniquet time (min): 118 Procedure in detail: Patient was identified and brought into operating room via gurney and then transferred onto operating table. Regional block was administered in holding area. General anesthesia was administered in operating room. Patient was in prone position for the entire operation. Thigh tourniquet was applied over well-padded surface, which was inflated to 300 mmHg for a total of 118 minutes for the procedures. Right lower extremity was prepped and draped in usual sterile fashion followed by official timeout with surgical team all in agreement. Attention was directed to right posterior heel at the insertion of the Achilles tendon. Percutaneous incisions were made using a # 15 scalpel at the borders of the posterior calcaneus to allow for insertion of Renee trip, which was used to remove significant bony eminence and osteophyte. After adequate resection as verified on fluoroscopy, Arthrex Minimally Invasive FiberTak Achilles SpeedBridge system was used for insertion of suture anchors and fixation of tendon. Attention was next directed to the Achilles tendon. Christin arthroscopy was used to provide visualization for debridement of the Achilles tendon and removal of bursa, and remarkable thickening and degenerative changes were noted and diminished by intervention. This was followed by implantation of allograft to augment healing potential. Attention was finally directed to the lower leg. Percutaneous incisions were made using a # 15 scalpel at medial and lateral aspect of middle one-third section. Following manufacture instructions, endoscopic gastrocnemius recession was performed with care to protect neurovascular structures. At this time, surgical sites were irrigated using saline mixed with gentamicin solution and closed using a 3-0 prolene.Incision sites were washed and dried. Jumpstart antimicrobial dressing was applied to all incisions, followed by sterile dressing using gauze, abodminal pads, Kerlix, and cast padding. A Posterior splint was molded using 4 inch OrthoGlass and secured with elastic bandage wraps. Patient tolerated procedures without complication and was transferred to PACU with all vital signs stable. Complications: none Post-operative Condition: stable Disposition: same day surgery Plan for aftercare: NWB to surgical limb. Elevate above heart. Ice behind knee. Keep dressing clean, dry, and intact.
== END 2025-01-23 14:35 | disposition home or self-care (01) ==
PROVIDERS: PCP Internal Medicine; Referring Provider Podiatrist Foot & Ankle Surgery; Visit Provider Podiatrist Foot & Ankle Surgery
PROC: (CPT 27654; principal; 2025-01-23 09:30)
DX: M25.774 Osteophyte, right foot (principal); M65.271 Calcific tendinitis, right ankle and foot; M62.461 Contracture of muscle, right lower leg; G89.18 Other acute postprocedural pain
CPT/HCPCS: 27654; 28118; 27687; 64450; C1713; J0330; J0689; J1100; J2250; J2405; J2704; J3010; J7030; J7120

== ENCOUNTER → 2025-02-08 13:12 | Outpatient (CLI) | payer MEDICARE, SELFPAY ==
--- NOTE | 2025-02-08 13:18 | DI.RAD.S_ITS ---
PROCEDURE: XR ANKLE RT MIN 3V INDICATIONS: XRAY TECHNIQUE: 3 views of the ankle were acquired. COMPARISON: None. FINDINGS: Bones: No fractures or dislocations. Ankle mortise is normally aligned. No suspicious bony lesions. Soft tissues: No tibiotalar joint effusion. Achilles tendon appears normal. IMPRESSION: No acute bony abnormality or significant effusion. Dictated by: Feng Mayorga M.D. on 02/08/2025 at 14:00 Approved by: Feng Mayorga M.D. on 02/08/2025 at 14:00
== END ==
LOC: RAD 13:16
PROVIDERS: PCP Internal Medicine; Referring Provider Podiatrist Foot & Ankle Surgery; Visit Provider Podiatrist Foot & Ankle Surgery
DX: Z47.89 Encounter for other orthopedic aftercare (principal)
CPT/HCPCS: 73610